=== PATIENT | female | born 1995 | race Caucasian/White ===

== ENCOUNTER 2017-04-02 21:45 | Inpatient (IN) | payer BC ==
[2017-04-02] MEDS ORDERED: Metoclopramide 10 MG/2 ML SDV IVPUSH ONE (22:06)
[2017-04-02] MEDS ORDERED: HYDROmorphone 0.5 MG/0.5 ML Syringe IVPUSH ONE (22:09)
[2017-04-02] MEDS ORDERED: Insulin Regular, Human 100 Units/ML 3 ML Vial IVPUSH ONE (22:11)
--- NOTE | 2017-04-02 22:11 | EDM.PDOC ---
ED HPI GENERAL MEDICAL PROBLEM - General Chief Complaint: Diabetic Complaint Stated Complaint: DIABETIC CHECK Time Seen by Provider: 04/02/17 22:05 Source of Information: Reports: Patient History Limitations: Reports: No Limitations - History of Present Illness INITIAL COMMENTS - FREE TEXT/NARRATIVE: 21-year-old female who is an insulin-dependent diabetic controlled with an insulin pump presents to the ED with nausea and vomiting starting today. Denies any diarrhea. Denies any fever or chills. Does seem to have a nonproductive cough. She is complaining of diffuse upper abdominal discomfort rating through to her back. Can't keep any food down. She reports she has given herself several boluses of insulin with her insulin pump but she doesn't know how much insulin is in each bolus. She has no idea what her total insulin uses per day. I had her therefore stop her insulin pump at this time. She apparently has been diabetic 4 years. He states she has had DKA once in the past about 1 years ago. She does not believe she is . Denies any genitourinary complaints. Therefore precipitant of acute DKA is unclear. Onset: Today Onset Date: 04/02/17 Onset Time: 09:00 Duration: Hour(s): Location: Reports: Generalized Quality: Reports: Other (Weakness nausea abdominal pain radiating through to her flanks characteristic of metabolic acidosis.) Severity: Severe Improves with: Reports: None Worsens with: Reports: None Context: Reports: Other (Insulin-dependent diabetic she believes her insulin pump is working satisfactorily.). Denies: Activity, Exercise, Lifting, Sick Contact, Trauma Associated Symptoms: Reports: Loss of Appetite, Nausea/Vomiting, Weakness. Denies: Fever/Chills (Mostly dry heaves recently.), Headaches Treatments MAC DEVELOPER: Reports: Other (see below) (None.) Abdominal Pain Score (Numeric/FACES): 7 - Related Data Allergies Allergy/AdvReac Type Severity Reaction Status Date / Time Penicillins Allergy Other Verified 04/02/17 22:18 Home Meds: Home Meds Albuterol [IJD: Ventolin HFA] 2 puff INH Q4H PRN 04/02/17 [History] Insulin Aspart [NovoLOG] 1 dose SUBCUT ASDIRECTED 04/02/17 [History] Past Medical History Endocrine/Metabolic History: Reports: Diabetes, Type I (Has been diabetic for greater than 7 years. Currently is controlled with an insulin pump.) ED ROS GENERAL - Review of Systems Review Of Systems: See Below Constitutional: Reports: Malaise, Weakness, Fatigue, Decreased Appetite. Denies : Fever, Chills HEENT: Reports: No Symptoms Respiratory: Reports: Shortness of Breath, Cough (Nonproductive). Denies: Wheezing, Pleuritic Chest Pain, Sputum, Hemoptysis, Other Cardiovascular: Reports: Lightheadedness, Palpitations Endocrine: Reports: Fatigue, High Glucose GI/Abdominal: Reports: Abdominal Pain (Name 22 both flanks.), Nausea, Vomiting ( Intractable for the last 6 hours bilious without any hematemesis.). Denies: Diarrhea : Reports: No Symptoms Musculoskeletal: Reports: Back Pain Skin: Reports: Pallor, Other Neurological: Reports: Dizziness, Numbness, Tingling (Hands and feet), Difficulty Walking, Weakness, Gait Disturbance (Two-week to walk on her own volition had to come to the ED by wheelchair.). Denies: Headache, Change in Speech (Generalized) Psychiatric: Reports: No Symptoms Hematologic/Lymphatic: Reports: No Symptoms Immunologic: Reports: No Symptoms ED EXAM GENERAL NO PERIP PULSE - Physical Exam Exam: See Below Exam Limited By: No Limitations General Appearance: Alert, Moderate Distress (Moderate respiratory distress. Strong smell of ketones on her breath.) Eye Exam: Bilateral Eye: Normal Inspection Ears: Normal TMs Throat/Mouth: Other Head: Atraumatic (Tongue is severely dry and coated.), Normocephalic Neck: Normal Inspection, Supple, Non-Tender, Full Range of Motion. No: Lymphadenopathy (L), Lymphadenopathy (R) Respiratory/Chest: Lungs Clear, No Accessory Muscle Use, Chest Non-Tender, Respiratory Distress Cardiovascular: Normal Peripheral Pulses, Regular Rate, Rhythm, No Edema, No Gallop, No Murmur, No Rub, Tachycardia (Resting tachycardia of 112-14/m) GI/Abdominal: Normal Bowel Sounds, Soft, Non-Tender, No Organomegaly, No Abnormal Bruit, No Mass, Pelvis Stable Back Exam: Normal Inspection, Full Range of Motion, CVA Tenderness (L), CVA Tenderness (R) (MILD mild) Extremities: Normal Inspection, Normal Range of Motion, Non-Tender, No Pedal Edema, Normal Capillary Refill Neurological: Alert, Oriented, CN II-XII Intact, Normal Cognition, Sensory/ Motor Deficit. No: Normal Gait Psychiatric: Normal Affect (Paresthesias in all of her limbs from hyperventilation.), Anxious Skin Exam: Warm, Dry, Intact, Normal Color, No Rash, Other (Afebrile.) EKG INTERPRETATION EKG Date: 04/02/17 Time: 22:40 Rhythm: Other (Sinus tachycardia at 10 4/m) Rate (Beats/Min): 104 [place]: Normal P-Wave: Present QRS: (repolarization pattern) ST-T: Normal (Diffuse early) QT: Normal Course - Vital Signs Last Recorded V/S: Last Vital Signs Temp 36.3 C 04/02/17 22:11 Pulse 110 H 04/02/17 22:11 Resp 37 H 04/02/17 23:35 BP 159/90 H 04/02/17 23:35 Pulse Ox 100 04/02/17 23:35 - Orders/Labs/Meds Orders: Active Orders 24 hr Category Date Time Status Admission Status [Patient Status] [ADT] Routine ADT 04/02/17 23:33 Active Blood Glucose Check, Bedside [RC] ONETIME Care 04/02/17 23:30 Active Blood Glucose Check, Bedside [RC] Q1HR Care 04/02/17 22:09 Active Oxygen Therapy [RC] ASDIRECTED Care 04/02/17 22:36 Active Chest 1V Frontal [CR] Stat Exams 04/02/17 23:08 Taken Insulin Regular, Human [HumuLIN R] 100 unit Med 04/02/17 22:15 Active Sodium Chloride 0.9% [Normal Saline] 99 ml IV ASDIRECTED Sodium Chloride 0.9% [Normal Saline] 1,000 ml Med 04/02/17 22:15 Active IV ASDIRECTED Medication Orders Sodium Chloride (Normal Saline) 1,000 mls @ 999 mls/hr IV ASDIRECTED ESA Last Admin: 04/02/17 22:34 Dose: 999 mls/hr Insulin Human Regular 100 unit (/ Sodium Chloride) 100 mls @ 2 mls/hr IV ASDIRECTED ESA PRN Reason: 2 UNIT/HR Last Infusion: 04/03/17 04:31 Dose: 2 unit/hr, 2 mls/hr Infusion: 04/03/17 03:22 Dose: 3 unit/hr, 3 mls/hr Infusion: 04/03/17 02:20 Dose: 2 unit/hr, 2 mls/hr Admin: 04/02/17 22:50 Dose: 3 unit/hr, 3 mls/hr Sodium Chloride (Normal Saline) 1,000 mls @ 500 mls/hr IV ONETIME ONE Stop: 04/03/17 06:10 Last Admin: 04/03/17 04:13 Dose: 500 mls/hr Dextrose/Sodium Chloride (Dextrose 5%-Normal Saline) 1,000 mls @ 150 mls/hr IV ASDIRECTED [facility] Labs: Laboratory Tests 04/02/17 04/02/17 04/02/17 Range/Units 22:00 22:00 22:00 WBC 36.39 H (3.98-10.04) K/mm3 RBC 4.38 (3.98-5.22) M/mm3 Hgb 13.2 (11.2-15.7) gm/L Hct 40.4 (34.1-44.9) % MCV 92.2 (79.4-94.8) fl MCH 30.1 (25.6-32.2) pg MCHC 32.7 (32.2-35.5) g/dl RDW Std Deviation 40.0 (36.4-46.3) fL Plt Count 674 H (182-369) K/mm3 MPV 9.1 L (9.4-12.3) fl Neutrophils % (Manual) 77 H (40-60) % Band Neutrophils % 3 (0-10) % Lymphocytes % (Manual) 15 L (20-40) % Atypical Lymphs % 0 % Monocytes % (Manual) 5 (2-10) % Eosinophils % (Manual) 0 L (0.7-5.8) % Basophils % (Manual) 0 L (0.1-1.2) Platelet Estimate Increased RBC Morph Comment Normal Puncture Site ABG pH (7.35-7.45) ABG pCO2 (35.0-45.0) mmHg ABG pO2 (80.0-100.0) mmHg ABG HCO3 (22.0-26.0) meq/L ABG O2 Saturation (96.0-97.0) % ABG Base Excess (-2-2.0) A-a Gradient mmHg O2 Delivery Device Oxygen Flow Rate FiO2 (21.00-100.00) % Sodium 131 L (136-145) mEq/L Potassium 5.3 H (3.5-5.1) mEq/L Chloride 92 L (98-107) mEq/L Carbon Dioxide < 5 L* (21-32) mEq/L Anion Gap 39.3 H (5-15) BUN 22 H (7-18) mg/dL Creatinine 1.6 H (0.55-1.02) mg/dL Est Cr Clr Drug Dosing 46.01 mL/min Estimated GFR (MDRD) 41 (>60) mL/min BUN/Creatinine Ratio 13.8 L (14-18) Glucose 840 H* (74-106) mg/dL Serum Osmolality 342 H (280-300) mosm/kg Calcium 9.5 (8.5-10.1) mg/dL Magnesium 2.4 (1.8-2.4) mg/dl Total Bilirubin 0.6 (0.2-1.0) mg/dL AST 23 (15-37) U/L ALT 25 (14-59) U/L Alkaline Phosphatase 204 H (46-116) U/L C-Reactive Protein < 0.2 (<1.0) mg/dL Total Protein 7.0 (6.4-8.2) g/dl Albumin 2.5 L (3.4-5.0) g/dl Globulin 4.5 gm/dL Albumin/Globulin Ratio 0.6 L (1-2) HCG, Qual (NEGATIVE) Urine Color (Yellow) Urine Appearance (Clear) Urine pH (5.0-8.0) Ur Specific [place] (1.005-1.030) Urine Protein (Negative) Urine Glucose (UA) (Negative) Urine Ketones (Negative) Urine Occult Blood (Negative) Urine Nitrite (Negative) Urine Bilirubin (Negative) Urine Urobilinogen (0.2-1.0) Ur Leukocyte Esterase (Negative) Urine RBC (0-5) /hpf Urine WBC (0-5) /hpf Ur Epithelial Cells (0-5) /hpf Amorphous Sediment (NOT SEEN) /hpf Urine Bacteria (FEW) /hpf Urine Mucus (FEW) /hpf Ketones 15.21 (0.0-0.3) mM 04/02/17 04/02/17 04/03/17 Range/Units 22:00 22:07 00:02 WBC (3.98-10.04) K/mm3 RBC (3.98-5.22) M/mm3 Hgb (11.2-15.7) gm/L Hct (34.1-44.9) % MCV (79.4-94.8) fl MCH (25.6-32.2) pg MCHC (32.2-35.5) g/dl RDW Std Deviation (36.4-46.3) fL Plt Count (182-369) K/mm3 MPV (9.4-12.3) fl Neutrophils % (Manual) (40-60) % Band Neutrophils % (0-10) % Lymphocytes % (Manual) (20-40) % Atypical Lymphs % % Monocytes % (Manual) (2-10) % Eosinophils % (Manual) (0.7-5.8) % Basophils % (Manual) (0.1-1.2) Platelet Estimate RBC Morph Comment Puncture Site Rt radial ABG pH 6.88 L* (7.35-7.45) ABG pCO2 18.2 L* (35.0-45.0) mmHg ABG pO2 80.0 (80.0-100.0) mmHg ABG HCO3 3.2 L (22.0-26.0) meq/L ABG O2 Saturation 88.5 L (96.0-97.0) % ABG Base Excess -30.3 L (-2-2.0) A-a Gradient 32 mmHg O2 Delivery Device Room air Oxygen Flow Rate 0.0 FiO2 0.00 L (21.00-100.00) % Sodium (136-145) mEq/L Potassium (3.5-5.1) mEq/L Chloride (98-107) mEq/L Carbon Dioxide (21-32) mEq/L Anion Gap (5-15) BUN (7-18) mg/dL Creatinine (0.55-1.02) mg/dL Est Cr Clr Drug Dosing mL/min Estimated GFR (MDRD) (>60) mL/min BUN/Creatinine Ratio (14-18) Glucose 615 H* (74-106) mg/dL Serum Osmolality (280-300) mosm/kg Calcium (8.5-10.1) mg/dL Magnesium (1.8-2.4) mg/dl Total Bilirubin (0.2-1.0) mg/dL AST (15-37) U/L ALT (14-59) U/L Alkaline Phosphatase (46-116) U/L C-Reactive Protein (<1.0) mg/dL Total Protein (6.4-8.2) g/dl Albumin (3.4-5.0) g/dl Globulin gm/dL Albumin/Globulin Ratio (1-2) HCG, Qual Negative (NEGATIVE) Urine Color (Yellow) Urine Appearance (Clear) Urine pH (5.0-8.0) Ur Specific [place] (1.005-1.030) Urine Protein (Negative) Urine Glucose (UA) (Negative) Urine Ketones (Negative) Urine Occult Blood (Negative) Urine Nitrite (Negative) Urine Bilirubin (Negative) Urine Urobilinogen (0.2-1.0) Ur Leukocyte Esterase (Negative) Urine RBC (0-5) /hpf Urine WBC (0-5) /hpf Ur Epithelial Cells (0-5) /hpf Amorphous Sediment (NOT SEEN) /hpf Urine Bacteria (FEW) /hpf Urine Mucus (FEW) /hpf Ketones (0.0-0.3) mM 04/03/17 04/03/17 04/03/17 Range/Units 00:15 00:45 01:44 WBC (3.98-10.04) K/mm3 RBC (3.98-5.22) M/mm3 Hgb (11.2-15.7) gm/L Hct (34.1-44.9) % MCV (79.4-94.8) fl MCH (25.6-32.2) pg MCHC (32.2-35.5) g/dl RDW Std Deviation (36.4-46.3) fL Plt Count (182-369) K/mm3 MPV (9.4-12.3) fl Neutrophils % (Manual) (40-60) % Band Neutrophils % (0-10) % Lymphocytes % (Manual) (20-40) % Atypical Lymphs % % Monocytes % (Manual) (2-10) % Eosinophils % (Manual) (0.7-5.8) % Basophils % (Manual) (0.1-1.2) Platelet Estimate RBC Morph Comment Puncture Site ABG pH (7.35-7.45) ABG pCO2 (35.0-45.0) mmHg ABG pO2 (80.0-100.0) mmHg ABG HCO3 (22.0-26.0) meq/L ABG O2 Saturation (96.0-97.0) % ABG Base Excess (-2-2.0) A-a Gradient mmHg O2 Delivery Device Oxygen Flow Rate FiO2 (21.00-100.00) % Sodium (136-145) mEq/L Potassium (3.5-5.1) mEq/L Chloride (98-107) mEq/L Carbon Dioxide (21-32) mEq/L Anion Gap (5-15) BUN (7-18) mg/dL Creatinine (0.55-1.02) mg/dL Est Cr Clr Drug Dosing mL/min Estimated GFR (MDRD) (>60) mL/min BUN/Creatinine Ratio (14-18) Glucose 545 H* 460 H (74-106) mg/dL Serum Osmolality (280-300) mosm/kg Calcium (8.5-10.1) mg/dL Magnesium (1.8-2.4) mg/dl Total Bilirubin (0.2-1.0) mg/dL AST (15-37) U/L ALT (14-59) U/L Alkaline Phosphatase (46-116) U/L C-Reactive Protein (<1.0) mg/dL Total Protein (6.4-8.2) g/dl Albumin (3.4-5.0) g/dl Globulin gm/dL Albumin/Globulin Ratio (1-2) HCG, Qual (NEGATIVE) Urine Color Yellow (Yellow) Urine Appearance Clear (Clear) Urine pH 5.5 (5.0-8.0) Ur Specific [place] 1.025 (1.005-1.030) Urine Protein 3+ H (Negative) Urine Glucose (UA) 2+ H (Negative) Urine Ketones 3+ H (Negative) Urine Occult Blood 2+ H (Negative) Urine Nitrite Negative (Negative) Urine Bilirubin Negative (Negative) Urine Urobilinogen 0.2 (0.2-1.0) Ur Leukocyte Esterase Negative (Negative) Urine RBC 10-20 H (0-5) /hpf Urine WBC 0-5 (0-5) /hpf Ur Epithelial Cells 0-5 (0-5) /hpf Amorphous Sediment Few H (NOT SEEN) /hpf Urine Bacteria Few (FEW) /hpf Urine Mucus Few (FEW) /hpf Ketones (0.0-0.3) mM /04/11 Range/Units 02:45 WBC (3.98-10.04) K/mm3 RBC (3.98-5.22) M/mm3 Hgb (11.2-15.7) gm/L Hct (34.1-44.9) % MCV (79.4-94.8) fl MCH (25.6-32.2) pg MCHC (32.2-35.5) g/dl RDW Std Deviation (36.4-46.3) fL Plt Count (182-369) K/mm3 MPV (9.4-12.3) fl Neutrophils % (Manual) (40-60) % Band Neutrophils % (0-10) % Lymphocytes % (Manual) (20-40) % Atypical Lymphs % % Monocytes % (Manual) (2-10) % Eosinophils % (Manual) (0.7-5.8) % Basophils % (Manual) (0.1-1.2) Platelet Estimate RBC Morph Comment Puncture Site ABG pH (7.35-7.45) ABG pCO2 (35.0-45.0) mmHg ABG pO2 (80.0-100.0) mmHg ABG HCO3 (22.0-26.0) meq/L ABG O2 Saturation (96.0-97.0) % ABG Base Excess (-2-2.0) A-a Gradient mmHg O2 Delivery Device Oxygen Flow Rate FiO2 (21.00-100.00) % Sodium 139 (136-145) mEq/L Potassium 5.1 (3.5-5.1) mEq/L Chloride 106 (98-107) mEq/L Carbon Dioxide < 5 L* (21-32) mEq/L Anion Gap 33.1 H (5-15) BUN 19 H (7-18) mg/dL Creatinine 1.3 H (0.55-1.02) mg/dL Est Cr Clr Drug Dosing 56.63 mL/min Estimated GFR (MDRD) 52 (>60) mL/min BUN/Creatinine Ratio 14.6 (14-18) Glucose 416 H (74-106) mg/dL Serum Osmolality (280-300) mosm/kg Calcium 7.4 L (8.5-10.1) mg/dL Magnesium (1.8-2.4) mg/dl Total Bilirubin 0.4 (0.2-1.0) mg/dL AST 14 L (15-37) U/L ALT 21 (14-59) U/L Alkaline Phosphatase 150 H (46-116) U/L C-Reactive Protein (<1.0) mg/dL Total Protein 5.4 L (6.4-8.2) g/dl Albumin 1.9 L (3.4-5.0) g/dl Globulin 3.5 gm/dL Albumin/Globulin Ratio 0.5 L (1-2) HCG, Qual (NEGATIVE) Urine Color (Yellow) Urine Appearance (Clear) Urine pH (5.0-8.0) Ur Specific [place] (1.005-1.030) Urine Protein (Negative) Urine Glucose (UA) (Negative) Urine Ketones (Negative) Urine Occult Blood (Negative) Urine Nitrite (Negative) Urine Bilirubin (Negative) Urine Urobilinogen (0.2-1.0) Ur Leukocyte Esterase (Negative) Urine RBC (0-5) /hpf Urine WBC (0-5) /hpf Ur Epithelial Cells (0-5) /hpf Amorphous Sediment (NOT SEEN) /hpf Urine Bacteria (FEW) /hpf Urine Mucus (FEW) /hpf Ketones (0.0-0.3) mM Meds: Medications Generic Name Dose Route Start Last Admin Trade Name Freq PRN Reason Stop Dose Admin Sodium Chloride 1,000 mls @ 999 mls/hr 04/02/17 22:15 04/02/17 22:34 Normal Saline IV 999 mls/hr ASDIRECTED ESA Administration Insulin Human Regular 100 unit 100 mls @ 2 mls/hr 04/02/17 22:15 04/03/17 04: 31 / Sodium Chloride IV 2 unit/hr ASDIRECTED ESA 2 mls/hr 2 UNIT/HR Infusion Sodium Chloride 1,000 mls @ 500 mls/hr 04/03/17 04:11 04/03/17 04:13 Normal Saline IV 04/03/17 06:10 500 mls/hr ONETIME ONE Administration Dextrose/Sodium Chloride 1,000 mls @ 150 mls/hr 04/03/17 05:15 Dextrose 5%-Normal Saline IV ASDIRECTED ESA Discontinued Medications Generic Name Dose Route Start Last Admin Trade Name Freq PRN Reason Stop Dose Admin Hydromorphone HCl 0.5 mg 04/02/17 22:09 04/02/17 22:34 Dilaudid IVPUSH 04/02/17 22:10 0.5 mg ONETIME ONE Administration Hydromorphone HCl 0.5 mg 04/03/17 01:11 04/03/17 01:22 Dilaudid IVPUSH 04/03/17 01:12 0.5 mg ONETIME ONE Administration Lidocaine HCl Confirm 04/02/17 22:16 Xylocaine-Mpf 1% Administered 04/02/17 22:17 Dose 2 mls @ as directed .ROUTE .STK-MED ONE Sodium Chloride 1,000 mls @ 999 mls/hr 04/02/17 23:45 04/02/17 23:47 Normal Saline IV 04/03/17 00:45 999 mls/hr ONETIME ONE Administration Sodium Chloride 1,000 mls @ 999 mls/hr 04/03/17 01:00 04/03/17 01:00 Normal Saline IV 04/03/17 02:00 999 mls/hr ONETIME ONE Administration Sodium Chloride 1,000 mls @ 999 mls/hr 04/03/17 01:12 04/03/17 04:17 Normal Saline IV 04/03/17 02:12 Not Given ONETIME ONE Sodium Chloride 1,000 mls @ 500 mls/hr 04/03/17 02:15 04/03/17 02:10 Normal Saline IV 04/03/17 04:14 500 mls/hr ONETIME ONE Administration Sodium Chloride 1,000 mls @ 500 mls/hr 04/03/17 02:22 04/03/17 04:17 Normal Saline IV 04/03/17 04:21 Not Given ONETIME ONE Insulin Human Regular 10 unit 04/02/17 22:11 04/02/17 22:31 Humulin R IVPUSH 04/02/17 22:12 10 unit ONETIME ONE Administration Protocol Lorazepam 0.5 mg 04/02/17 22:35 04/02/17 22:47 Ativan IVPUSH 04/02/17 22:36 0.5 mg ONETIME ONE Administration Metoclopramide HCl 7.5 mg 04/02/17 22:06 04/02/17 22:33 Reglan IVPUSH 04/02/17 22:07 7.5 mg ONETIME ONE Administration - Radiology Interpretation Free Text/Narrative:: 21-year-old female who is insulin-dependent diabetic controlled with an insulin pump presents to the ED in acute diabetic ketoacidosis. Bedside blood sugars greater than 400. She reports symptoms started early this morning with nausea around 9:00 and then she started vomiting shortly thereafter. Nothing his stay down today. She states she has given herself several boluses of insulin as her monitor continues to read high but she is unaware of how much insulin her boluses are. She is unaware of how much insulin she takes in total per day. Plan IV normal saline at open. 10 units of insulin IV bolus then drip to be started at 3 units an hour. Routine labs obtained she does not feel febrile and therefore blood cultures were not ordered. Will make sure she is not before ordering chest x-ray. 8 a ABGs are to be done. - Re-Assessments/Exams Free Text/Narrative Re-Assessment/Exam: 04/02/17 22:33 ABGs revealed a pH of 6.88. PCO2 of 18.2 PO2 of 80 on room air. O2 sats are 88.5% on room air. Base deficit is -30.3. 04/02/17 22:36 a she continues to pull off her blood pressure cuff and her monitor pads. This makes it impossible to monitor her vital signs at present. We 'll give her Ativan 0.5 mg IV. She just received Dilaudid 0.5 mg IV a short time ago to release some of her upper abdominal discomfort from the metabolic acidosis. Oxygen will be started by nasal prongs at 2 L/m as long as she can keep the prongs in place. 04/02/17 23:16 after mild sedation patient has settled. Her pain she test is come back negative and therefore she will have a portable chest x-ray performed to rule out any underlying infection in the lungs. Labs are back and reveal an elevated white count at 36.39. Differential is pending. Hemoglobin is 13.2 with hematocrit of 40.4 platelets are elevated at 674,000 [place]iss[place] suggesting some degree of hemoconcentration. Sodium is low at 131 potassium is high normal at 5.3. Chloride 92 bicarbonate is less than 5. Anion gap is markedly elevated at 39.3 be when his 22 creatinine is 1.6 EGFR is only 41. Glucose is 840 in the lab. Serum osmolality 342. Alk phosphatase is mildly elevated at 204 .HCG was negative. Albumin fraction is low at 2.5. Serum ketones as well as the differential on the white count are pending. 04/02/17 23:23 port chest x-ray is within normal limits showing no signs of infection. Serum ketones are markedly elevated at 15.21. Different differential of the white cell count was 77% neutrophils and 3% band cells. Urinalysis is not yet been obtained for analysis. I will discuss case with contact center representative hospitalist Dr. Hills with a view to admission to the intensive care unit. 04/02/17 23:32 Dr. Hills in the department and will see the patient at this time. Orders will be placed for admission to the intensive care unit. 04/03/17 00:48 blood sugar at midnight was reported to be 615. She is currently on her second liter of normal saline IV. Will leave the insulin drip at 3 units an hour. She is scheduled for hourly blood sugars. She is able to drink Gatorade and water at this time. 04/03/17 01:13 patient is currently moaning and groaning due to her abdominal pain. It's is most likely still secondary to the significant metabolic acidosis. We will repeat Dilaudid 0.5 mg IV. Orders written for third liter of normal saline to be infused at 999 mils per hour. Will see what her next blood sugar is and make adjustments to insulin drip if required. Is my understanding that a bed will not be available for her in the intensive care unit until around 0300 hrs. 04/03/17 01:28 blood sugars down to 545. At this time no changes in treatment plan are required. She will continue 3 units of insulin per hour and IV will be normal saline at open. The next liter of IV fluid will be normal saline at 500 mils per hour. 04/03/17 02:23 blood sugar reported to be down to 450. Fourth liter of IV fluids will be 500 mils per hour of normal saline. Turned her insulin drip down to 2 units per hour. 04/03/17 03:23 blood sugars currently down to 416. Her anion gap remains elevated however at 33.3. She remains very acidotic. Serum potassium is 5.1. Will increase insulin drip back to 3 units per hour. IV fluids will continue normal saline 500 mils per hour. It still? As to when she will be admitted to the intensive care unit. 04/03/17 04:48 last blood sugar was down to 285. Insulin drip was therefore decreased to 2 units per hour. Is continuing normal saline at 500 mils per hour. Blood sugar to be checked again in one hours time. It is likely at that time that insulin infusion will be decreased to 1 unit per hour. IV will be changed to contain D5 normal saline. Apparently there is still no bed available in the intensive care unit. 04/03/17 05:17 bed is available in the intensive care unit and she will be taken to the unit shortly. Departure - Departure Time of Disposition: 05:17 Disposition: Admitted As Inpatient 66 Condition: Critical Clinical Impression: Diabetic ketoacidosis associated with type 1 diabetes mellitus Qualifiers: Diabetes mellitus complication detail: without coma Qualified Code(s): E10.10 - Type 1 diabetes mellitus with ketoacidosis without coma - Discharge Information - My Orders Last 24 Hours: My Active Orders 04/02/17 22:09 Blood Glucose Check, Bedside [RC] Q1HR 04/02/17 22:15 Insulin Regular, Human [HumuLIN R] 100 unit Sodium Chloride 0.9% [Normal Saline] 99 ml IV ASDIRECTED Sodium Chloride 0.9% [Normal Saline] 1,000 ml IV ASDIRECTED 04/02/17 22:36 Oxygen Therapy [RC] ASDIRECTED 04/02/17 23:08 Chest 1V Frontal [CR] Stat 04/02/17 23:30 Blood Glucose Check, Bedside [RC] ONETIME 04/02/17 23:33 Admission Status [Patient Status] [ADT] Routine - Assessment/Plan Last 24 Hours: My Active Orders 04/02/17 22:09 Blood Glucose Check, Bedside [RC] Q1HR 04/02/17 22:15 Insulin Regular, Human [HumuLIN R] 100 unit Sodium Chloride 0.9% [Normal Saline] 99 ml IV ASDIRECTED Sodium Chloride 0.9% [Normal Saline] 1,000 ml IV ASDIRECTED 04/02/17 22:36 Oxygen Therapy [RC] ASDIRECTED 04/02/17 23:08 Chest 1V Frontal [CR] Stat 04/02/17 23:30 Blood Glucose Check, Bedside [RC] ONETIME 04/02/17 23:33 Admission Status [Patient Status] [ADT] Routine
[2017-04-02] MEDS ORDERED: Sodium Chloride 0.9% 1,000 ML IV SCH (22:15)
[2017-04-02] MEDS ORDERED: Lidocaine 1% 2 ML ONE (22:16)
[2017-04-02] MEDS ORDERED: LORazepam 2 MG/ML MDV IVPUSH ONE (22:35)
[2017-04-02] MEDS ORDERED: Sodium Chloride 0.9% 1,000 ML IV ONE (23:45)
[2017-04-03] MEDS ORDERED: Sodium Chloride 0.9% 1,000 ML IV ONE ×5 (01:00→04:11)
[2017-04-03] MEDS ORDERED: HYDROmorphone 0.5 MG/0.5 ML Syringe IVPUSH ONE (01:11)
[2017-04-03] MEDS: Dextrose 5%-0.9% NaCl 1,000 ML IV SCH ×3 (05:47→20:56)
--- NOTE | 2017-04-03 09:23 | PCM.HP ---
H&P History of Present Illness - General Date of Service: 04/02/17 Source of Information: Provider History Limitations: Reports: Other (restlessness; medicated after screaming in the ED) - History of Present Illness Initial Comments - Free Text/Narative: 21 year old PMH of Diabetes Mellitus type 1, presents with nausea/vomiting with associated abdominal pain. She has been anxious while in the ED often screaming at the staff. Prior to evaluation by the hospitalist service, she was sedated. The history is as obtained by the ED provider. She is receiving a liter of fluid and will be started on insulin. The insulin pump has been disabled, frequently, the patient gave herself boluses without knowledge of how much she was giving herself. Reportedly she has been a diabetic for four years. Laboratory results document DKA. She will admitted to the ICU per DKA protocol. Onset of Symptoms: Reports: Sudden Symptom Onset Date: 04/02/17 Duration of Symptoms: Reports: Hour(s):, Getting Worse Location: Reports: Abdomen, Generalized Severity: Moderate Improves with: Reports: Medication Worsens with: Reports: None Associated Symptoms: Reports: Loss of Appetite, Malaise, Nausea/Vomiting, Weakness Abdominal Pain Score (Numeric/FACES): 7 - Related Data Allergies/Adverse Reactions: Allergies Allergy/AdvReac Type Severity Reaction Status Date / Time Penicillins Allergy Other Verified 04/02/17 22:18 Home Medications: Home Meds Albuterol [IJD: Ventolin HFA] 2 puff INH Q4H PRN 04/02/17 [History] Insulin Aspart [NovoLOG] 1 dose SUBCUT ASDIRECTED 04/02/17 [History] Past Medical History Endocrine/Metabolic History: Reports: Diabetes, Type I (Has been diabetic for greater than 7 years. Currently is controlled with an insulin pump.) Social & Family History - Family History Family Medical History: Noncontributory - Tobacco Use Smoking Status *Q: Never Smoker - Caffeine Use Caffeine Use: Reports: Coffee, Soda - Recreational Drug Use Recreational Drug Use: No H&P Review of Systems - Review of Systems: Review Of Systems: See Below General: Reports: Malaise, Weakness, Fatigue, Decreased Appetite HEENT: Reports: No Symptoms Pulmonary: Reports: Shortness of Breath, Cough Cardiovascular: Reports: No Symptoms Gastrointestinal: Reports: Abdominal Pain Genitourinary: Reports: No Symptoms Musculoskeletal: Reports: No Symptoms Skin: Reports: No Symptoms Psychiatric: Reports: No Symptoms Neurological: Reports: No Symptoms Hematologic/Lymphatic: Reports: No Symptoms Immunologic: Reports: No Symptoms Exam - Exam Exam: See Below - Vital Signs Vital Signs: Last Vital Signs Temp 37.2 C 04/03/17 08:00 Pulse 110 H 04/02/17 22:11 Resp 15 04/03/17 08:00 BP 126/78 04/03/17 08:00 Pulse Ox 100 04/03/17 08:00 Weight: 54.431 kg - Exam Quality Assessment: Supplemental Oxygen General: Sedated HEENT: Pupils Equal, Pupils Reactive, PERRLA Neck: Supple, Trachea Midline Lungs: Normal Respiratory Effort Cardiovascular: Regular Rate, Tachycardia GI/Abdominal Exam: Normal Bowel Sounds, Soft, Non-Tender, No Distention (Female) Exam: Deferred Rectal (Female) Exam: Deferred Back Exam: Normal Inspection Extremities: Normal Inspection Skin: Warm Neurological: Cranial Nerves Intact Neuro Extensive - Motor, Sensory, Reflexes: CN II-XII Intact Psychiatric: Anxious (before sedation) - Patient Data Lab Results Last 24 hrs: Laboratory Results - last 24 hr 04/03/17 04/03/17 04/03/17 Range/Units 04:26 05:35 06:18 Sodium 142 (136-145) mEq/L Potassium 4.1 (3.5-5.1) mEq/L Chloride 112 H (98-107) mEq/L Carbon Dioxide 11 L (21-32) mEq/L Anion Gap 23.1 H (5-15) BUN 16 (7-18) mg/dL Creatinine 1.2 H (0.55-1.02) mg/dL Est Cr Clr Drug Dosing 61.35 mL/min Estimated GFR (MDRD) 57 (>60) mL/min BUN/Creatinine Ratio 13.3 L (14-18) Glucose 205 H (74-106) mg/dL POC Glucose 285 H 218 H (70-105) mg/dL Calcium 7.2 L (8.5-10.1) mg/dL Magnesium 1.8 (1.8-2.4) mg/dl 04/03/17 04/03/17 04/03/17 Range/Units 06:23 07:57 08:48 Sodium (136-145) mEq/L Potassium (3.5-5.1) mEq/L Chloride (98-107) mEq/L Carbon Dioxide (21-32) mEq/L Anion Gap (5-15) BUN (7-18) mg/dL Creatinine (0.55-1.02) mg/dL Est Cr Clr Drug Dosing mL/min Estimated GFR (MDRD) (>60) mL/min BUN/Creatinine Ratio (14-18) Glucose (74-106) mg/dL POC Glucose 189 H 166 H 147 H (70-105) mg/dL Calcium (8.5-10.1) mg/dL Magnesium (1.8-2.4) mg/dl Result Diagrams: 04/03/17 12:52 04/03/17 09:50 *Q Meaningful Use (ADM) - VTE *Q VTE Criteria *Q: - Stroke *Q Stroke Criteria *Q: - AMI *Q AMI Criteria *Q: Problem List Initiated/Reviewed/Updated: Yes Orders Last 24hrs: Active Orders 24 hr Category Date Time Status Consult to Liquor Establishment Manager [Consult to Diabetic Nurse Cons 04/03/17 05:08 Active Specialist] [CONS] Routine NPO [Nothing Per Oral Diet] [DIET] Diet 04/03/17 Breakfast Active BMP [BASIC METABOLIC PANEL,BMP] [CHEM] Routine Lab 04/03/17 10:00 Ordered Dextrose 5%-0.9% NaCl [Dextrose 5%-Normal Saline] 1,000 Med 04/03/17 05:15 Active ml IV ASDIRECTED Insulin Regular, Human [HumuLIN R] 100 unit Med 04/03/17 06:00 Active Sodium Chloride 0.9% [Normal Saline] 99 ml IV ASDIRECTED Code Status [Resuscitation Status] Routine Resus Stat 04/03/17 05:55 Ordered Medication Orders Dextrose/Sodium Chloride (Dextrose 5%-Normal Saline) 1,000 mls @ 150 mls/hr IV ASDIRECTED ESA Last Admin: 04/03/17 05:47 Dose: 150 mls/hr Insulin Human Regular 100 unit (/ Sodium Chloride) 100 mls @ 2 mls/hr IV ASDIRECTED ESA; 2 UNIT/HR PRN Reason: Protocol Last Titration: 04/03/17 08:49 Dose: 1 unit/hr, 1 mls/hr Titration: 04/03/17 07:59 Dose: 1.5 unit/hr, 1.5 mls/hr Titration: 04/03/17 06:34 Dose: 2 unit/hr, 2 mls/hr Admin: 04/03/17 05:56 Dose: 2.5 unit/hr, 2.5 mls/hr Assessment/Plan Comment:: Impression: DKA, unknown precipitant Type 1 Diabetes Mellitus Plan: ICU DKA protocol IVF Electrolyte Replacement NPO Clarify insulin pump dose DM education CM/OT/PT DVT/GI prophylaxis
[2017-04-03] MEDS ORDERED: Ondansetron 4 MG/2 ML SDV IVPUSH PRN (09:57)
[2017-04-03] MEDS ORDERED: Metoclopramide 10 MG/2 ML SDV IVPUSH PRN (09:58)
[2017-04-03] MEDS: Sodium Chloride 0.9% 1,000 ML IV SCH ×2 (10:01→11:03)
[2017-04-03] MEDS ORDERED: Magnesium Sulfate/Water 2 GM in Premix Bag 1 BAG IV ONE (13:55)
--- NOTE | 2017-04-03 15:10 | PCM.PN ---
- General Info Date of Service: 04/03/17 Functional Status: Reports: Other (NPO) - Review of Systems General: Reports: Weakness, Malaise HEENT: Reports: No Symptoms Pulmonary: Reports: No Symptoms Cardiovascular: Reports: No Symptoms Gastrointestinal: Reports: No Symptoms Genitourinary: Reports: No Symptoms Musculoskeletal: Reports: No Symptoms Skin: Reports: No Symptoms Neurological: Reports: No Symptoms Psychiatric: Reports: No Symptoms - Patient Data Vitals - Most Recent: Last Vital Signs Temp 36.7 C 04/03/17 11:49 Pulse 110 H 04/02/17 22:11 Resp 17 04/03/17 11:49 BP 132/87 04/03/17 11:49 Pulse Ox 100 04/03/17 11:49 Weight - Most Recent: 54.431 kg I&O - Last 24 Hours: Intake & Output 04/03/17 04/03/17 04/03/17 06:59 14:59 22:59 Intake Total 3406 Output Total 1800 Balance 1606 Lab Results Last 24 Hours: Laboratory Results - last 24 hr 04/03/17 04/03/17 04/03/17 Range/Units 04:26 05:35 06:18 WBC (3.98-10.04) K/mm3 RBC (3.98-5.22) M/mm3 Hgb (11.2-15.7) gm/L Hct (34.1-44.9) % MCV (79.4-94.8) fl MCH (25.6-32.2) pg MCHC (32.2-35.5) g/dl RDW Std Deviation (36.4-46.3) fL Plt Count (182-369) K/mm3 MPV (9.4-12.3) fl Neut % (Auto) (34.0-71.1) % Lymph % (Auto) (19.3-51.7) % George % (Auto) (4.7-12.5) % Eos % (Auto) (0.7-5.8) Baso % (Auto) (0.1-1.2) % Neut # (Auto) (1.56-6.13) K/mm3 Lymph # (Auto) (1.18-3.74) K/mm3 George # (Auto) (0.24-0.36) K/mm3 Eos # (Auto) (0.04-0.36) K/mm3 Baso # (Auto) (0.01-0.08) K/mm3 Manual Slide Review Sodium 142 (136-145) mEq/L Potassium 4.1 (3.5-5.1) mEq/L Chloride 112 H (98-107) mEq/L Carbon Dioxide 11 L (21-32) mEq/L Anion Gap 23.1 H (5-15) BUN 16 (7-18) mg/dL Creatinine 1.2 H (0.55-1.02) mg/dL Est Cr Clr Drug Dosing 61.35 mL/min Estimated GFR (MDRD) 57 (>60) mL/min BUN/Creatinine Ratio 13.3 L (14-18) Glucose 205 H (74-106) mg/dL POC Glucose 285 H 218 H (70-105) mg/dL Calcium 7.2 L (8.5-10.1) mg/dL Magnesium 1.8 (1.8-2.4) mg/dl C-Reactive Protein (<1.0) mg/dL Ethyl Alcohol (0.00) gm% Ketones (0.0-0.3) mM 04/03/17 04/03/17 04/03/17 Range/Units 06:23 07:57 08:48 WBC (3.98-10.04) K/mm3 RBC (3.98-5.22) M/mm3 Hgb (11.2-15.7) gm/L Hct (34.1-44.9) % MCV (79.4-94.8) fl MCH (25.6-32.2) pg MCHC (32.2-35.5) g/dl RDW Std Deviation (36.4-46.3) fL Plt Count (182-369) K/mm3 MPV (9.4-12.3) fl Neut % (Auto) (34.0-71.1) % Lymph % (Auto) (19.3-51.7) % George % (Auto) (4.7-12.5) % Eos % (Auto) (0.7-5.8) Baso % (Auto) (0.1-1.2) % Neut # (Auto) (1.56-6.13) K/mm3 Lymph # (Auto) (1.18-3.74) K/mm3 George # (Auto) (0.24-0.36) K/mm3 Eos # (Auto) (0.04-0.36) K/mm3 Baso # (Auto) (0.01-0.08) K/mm3 Manual Slide Review Sodium (136-145) mEq/L Potassium (3.5-5.1) mEq/L Chloride (98-107) mEq/L Carbon Dioxide (21-32) mEq/L Anion Gap (5-15) BUN (7-18) mg/dL Creatinine (0.55-1.02) mg/dL Est Cr Clr Drug Dosing mL/min Estimated GFR (MDRD) (>60) mL/min BUN/Creatinine Ratio (14-18) Glucose (74-106) mg/dL POC Glucose 189 H 166 H 147 H (70-105) mg/dL Calcium (8.5-10.1) mg/dL Magnesium (1.8-2.4) mg/dl C-Reactive Protein (<1.0) mg/dL Ethyl Alcohol (0.00) gm% Ketones (0.0-0.3) mM 04/03/17 04/03/17 04/03/17 Range/Units 09:50 09:50 09:54 WBC (3.98-10.04) K/mm3 RBC (3.98-5.22) M/mm3 Hgb (11.2-15.7) gm/L Hct (34.1-44.9) % MCV (79.4-94.8) fl MCH (25.6-32.2) pg MCHC (32.2-35.5) g/dl RDW Std Deviation (36.4-46.3) fL Plt Count (182-369) K/mm3 MPV (9.4-12.3) fl Neut % (Auto) (34.0-71.1) % Lymph % (Auto) (19.3-51.7) % George % (Auto) (4.7-12.5) % Eos % (Auto) (0.7-5.8) Baso % (Auto) (0.1-1.2) % Neut # (Auto) (1.56-6.13) K/mm3 Lymph # (Auto) (1.18-3.74) K/mm3 George # (Auto) (0.24-0.36) K/mm3 Eos # (Auto) (0.04-0.36) K/mm3 Baso # (Auto) (0.01-0.08) K/mm3 Manual Slide Review Sodium 141 (136-145) mEq/L Potassium 4.0 (3.5-5.1) mEq/L Chloride 111 H (98-107) mEq/L Carbon Dioxide 14 L (21-32) mEq/L Anion Gap 20.0 H (5-15) BUN 14 (7-18) mg/dL Creatinine 1.1 H (0.55-1.02) mg/dL Est Cr Clr Drug Dosing 66.92 mL/min Estimated GFR (MDRD) > 60 (>60) mL/min BUN/Creatinine Ratio 12.7 L (14-18) Glucose 222 H (74-106) mg/dL POC Glucose 203 H (70-105) mg/dL Calcium 7.4 L (8.5-10.1) mg/dL Magnesium 1.7 L (1.8-2.4) mg/dl C-Reactive Protein 0.5 (<1.0) mg/dL Ethyl Alcohol 0.00 (0.00) gm% Ketones 5.3 (0.0-0.3) mM 04/03/17 04/03/17 04/03/17 Range/Units 10:46 11:46 12:48 WBC (3.98-10.04) K/mm3 RBC (3.98-5.22) M/mm3 Hgb (11.2-15.7) gm/L Hct (34.1-44.9) % MCV (79.4-94.8) fl MCH (25.6-32.2) pg MCHC (32.2-35.5) g/dl RDW Std Deviation (36.4-46.3) fL Plt Count (182-369) K/mm3 MPV (9.4-12.3) fl Neut % (Auto) (34.0-71.1) % Lymph % (Auto) (19.3-51.7) % George % (Auto) (4.7-12.5) % Eos % (Auto) (0.7-5.8) Baso % (Auto) (0.1-1.2) % Neut # (Auto) (1.56-6.13) K/mm3 Lymph # (Auto) (1.18-3.74) K/mm3 George # (Auto) (0.24-0.36) K/mm3 Eos # (Auto) (0.04-0.36) K/mm3 Baso # (Auto) (0.01-0.08) K/mm3 Manual Slide Review Sodium (136-145) mEq/L Potassium (3.5-5.1) mEq/L Chloride (98-107) mEq/L Carbon Dioxide (21-32) mEq/L Anion Gap (5-15) BUN (7-18) mg/dL Creatinine (0.55-1.02) mg/dL Est Cr Clr Drug Dosing mL/min Estimated GFR (MDRD) (>60) mL/min BUN/Creatinine Ratio (14-18) Glucose (74-106) mg/dL POC Glucose 193 H 185 H 177 H (70-105) mg/dL Calcium (8.5-10.1) mg/dL Magnesium (1.8-2.4) mg/dl C-Reactive Protein (<1.0) mg/dL Ethyl Alcohol (0.00) gm% Ketones (0.0-0.3) mM 04/03/17 04/03/17 04/03/17 Range/Units 12:52 12:52 13:45 WBC 20.75 H (3.98-10.04) K/mm3 RBC 3.30 L (3.98-5.22) M/mm3 Hgb 10.0 L (11.2-15.7) gm/L Hct 29.5 L (34.1-44.9) % MCV 89.4 (79.4-94.8) fl MCH 30.3 (25.6-32.2) pg MCHC 33.9 (32.2-35.5) g/dl RDW Std Deviation 37.9 (36.4-46.3) fL Plt Count 435 H (182-369) K/mm3 MPV 8.4 L (9.4-12.3) fl Neut % (Auto) 77.0 H (34.0-71.1) % Lymph % (Auto) 16.3 L (19.3-51.7) % George % (Auto) 5.7 (4.7-12.5) % Eos % (Auto) 0.1 L (0.7-5.8) Baso % (Auto) 0.1 (0.1-1.2) % Neut # (Auto) 15.96 H (1.56-6.13) K/mm3 Lymph # (Auto) 3.38 (1.18-3.74) K/mm3 George # (Auto) 1.19 H (0.24-0.36) K/mm3 Eos # (Auto) 0.03 L (0.04-0.36) K/mm3 Baso # (Auto) 0.03 (0.01-0.08) K/mm3 Manual Slide Review Abnormal smear Sodium 142 (136-145) mEq/L Potassium 3.5 (3.5-5.1) mEq/L Chloride 113 H (98-107) mEq/L Carbon Dioxide 15 L (21-32) mEq/L Anion Gap 17.5 H (5-15) BUN 12 (7-18) mg/dL Creatinine 1.0 (0.55-1.02) mg/dL Est Cr Clr Drug Dosing 73.61 mL/min Estimated GFR (MDRD) > 60 (>60) mL/min BUN/Creatinine Ratio 12.0 L (14-18) Glucose 172 H (74-106) mg/dL POC Glucose 163 H (70-105) mg/dL Calcium 7.1 L (8.5-10.1) mg/dL Magnesium (1.8-2.4) mg/dl C-Reactive Protein (<1.0) mg/dL Ethyl Alcohol (0.00) gm% Ketones (0.0-0.3) mM 04/03/17 Range/Units 14:49 WBC (3.98-10.04) K/mm3 RBC (3.98-5.22) M/mm3 Hgb (11.2-15.7) gm/L Hct (34.1-44.9) % MCV (79.4-94.8) fl MCH (25.6-32.2) pg MCHC (32.2-35.5) g/dl RDW Std Deviation (36.4-46.3) fL Plt Count (182-369) K/mm3 MPV (9.4-12.3) fl Neut % (Auto) (34.0-71.1) % Lymph % (Auto) (19.3-51.7) % George % (Auto) (4.7-12.5) % Eos % (Auto) (0.7-5.8) Baso % (Auto) (0.1-1.2) % Neut # (Auto) (1.56-6.13) K/mm3 Lymph # (Auto) (1.18-3.74) K/mm3 George # (Auto) (0.24-0.36) K/mm3 Eos # (Auto) (0.04-0.36) K/mm3 Baso # (Auto) (0.01-0.08) K/mm3 Manual Slide Review Sodium (136-145) mEq/L Potassium (3.5-5.1) mEq/L Chloride (98-107) mEq/L Carbon Dioxide (21-32) mEq/L Anion Gap (5-15) BUN (7-18) mg/dL Creatinine (0.55-1.02) mg/dL Est Cr Clr Drug Dosing mL/min Estimated GFR (MDRD) (>60) mL/min BUN/Creatinine Ratio (14-18) Glucose (74-106) mg/dL POC Glucose 168 H (70-105) mg/dL Calcium (8.5-10.1) mg/dL Magnesium (1.8-2.4) mg/dl C-Reactive Protein (<1.0) mg/dL Ethyl Alcohol (0.00) gm% Ketones (0.0-0.3) mM Med Orders - Current: Current Medications Dextrose/Sodium Chloride (Dextrose 5%-Normal Saline) 1,000 mls @ 150 mls/hr IV ASDIRECTED ESA Last Admin: 04/03/17 14:07 Dose: 150 mls/hr Insulin Human Regular 100 unit (/ Sodium Chloride) 100 mls @ 2 mls/hr IV ASDIRECTED ESA; 2 UNIT/HR PRN Reason: Protocol Last Titration: 04/03/17 12:49 Dose: 1.5 unit/hr, 1.5 mls/hr Sodium Chloride (Normal Saline) 1,000 mls @ 999 mls/hr IV ASDIRECTED ESA Stop: 04/04/17 10:31 Last Admin: 04/03/17 11:03 Dose: 999 mls/hr Magnesium Sulfate 2 gm/ Premix 50 mls @ 25 mls/hr IV ONETIME ONE Stop: 04/03/17 15:54 Last Admin: 04/03/17 14:10 Dose: 25 mls/hr Metoclopramide HCl (Reglan) 5 mg IVPUSH Q6H PRN PRN Reason: Nausea/Vomiting Ondansetron HCl (Zofran) 4 mg IVPUSH Q8H PRN PRN Reason: Nausea/Vomiting Discontinued Medications Hydromorphone HCl (Dilaudid) 0.5 mg IVPUSH ONETIME ONE Stop: 04/02/17 22:10 Last Admin: 04/02/17 22:34 Dose: 0.5 mg Hydromorphone HCl (Dilaudid) 0.5 mg IVPUSH ONETIME ONE Stop: 04/03/17 01:12 Last Admin: 04/03/17 01:22 Dose: 0.5 mg Sodium Chloride (Normal Saline) 1,000 mls @ 999 [facility] Last Admin: 04/02/17 22:34 Dose: 999 mls/hr Insulin Human Regular 100 unit (/ Sodium Chloride) 100 mls @ 2 mls/hr [facility] PRN Reason: 2 UNIT/HR Last Infusion: 04/03/17 04:31 Dose: 2 unit/hr, 2 mls/hr Lidocaine HCl (Xylocaine-Mpf 1%) Confirm Administered Dose 2 mls @ as directed .ROUTE .STK-MED ONE Stop: 04/02/17 22:17 Last Admin: 04/03/17 05:54 Dose: Not Given Sodium Chloride (Normal Saline) 1,000 mls @ 999 mls/hr IV ONETIME ONE Stop: 04/03/17 00:45 Last Admin: 04/02/17 23:47 Dose: 999 mls/hr Sodium Chloride (Normal Saline) 1,000 mls @ 999 mls/hr IV ONETIME ONE Stop: 04/03/17 02:00 Last Admin: 04/03/17 01:00 Dose: 999 mls/hr Sodium Chloride (Normal Saline) 1,000 mls @ 999 mls/hr IV ONETIME ONE Stop: 04/03/17 02:12 Last Admin: 04/03/17 04:17 Dose: Not Given Sodium Chloride (Normal Saline) 1,000 mls @ 500 mls/hr IV ONETIME ONE Stop: 04/03/17 04:14 Last Admin: 04/03/17 02:10 Dose: 500 mls/hr Sodium Chloride (Normal Saline) 1,000 mls @ 500 mls/hr IV ONETIME ONE Stop: 04/03/17 04:21 Last Admin: 04/03/17 04:17 Dose: Not Given Sodium Chloride (Normal Saline) 1,000 mls @ 500 mls/hr IV ONETIME ONE Stop: 04/03/17 06:10 Last Admin: 04/03/17 04:13 Dose: 500 mls/hr Insulin Human Regular (Humulin R) 10 unit IVPUSH ONETIME ONE PRN Reason: Protocol Stop: 04/02/17 22:12 Last Admin: 04/02/17 22:31 Dose: 10 unit Lorazepam (Ativan) 0.5 mg IVPUSH ONETIME ONE Stop: 04/02/17 22:36 Last Admin: 04/02/17 22:47 Dose: 0.5 mg Metoclopramide HCl (Reglan) 7.5 mg IVPUSH ONETIME ONE Stop: 04/02/17 22:07 Last Admin: 04/02/17 22:33 Dose: 7.5 mg - Exam Quality Assessment: DVT Prophylaxis General: Alert, Oriented, Cooperative, No Acute Distress HEENT: Pupils Equal, Pupils Reactive, EOMI Neck: Supple, Trachea Midline Lungs: Normal Respiratory Effort Cardiovascular: Regular Rate, Regular Rhythm GI/Abdominal Exam: Normal Bowel Sounds, Soft, Non-Tender, No Distention (Female) Exam: Deferred Back Exam: Normal Inspection Extremities: Normal Inspection Skin: Warm Neurological: No New Focal Deficit Psy/Mental Status: Alert, Normal Affect, Normal Mood - Problem List Review Problem List Initiated/Reviewed/Updated: Yes - My Orders Last 24 Hours: My Active Orders 04/03/17 05:08 Consult to Diamond Wheel Edger [Consult to Diabetic Nurse Specialist] [CONS] Routine 04/03/17 05:15 Dextrose 5%-0.9% NaCl [Dextrose 5%-Normal Saline] 1,000 ml IV ASDIRECTED 04/03/17 05:55 Code Status [Resuscitation Status] Routine 04/03/17 06:00 Insulin Regular, Human [HumuLIN R] 100 unit Sodium Chloride 0.9% [Normal Saline] 99 ml IV ASDIRECTED 04/03/17 09:30 Sodium Chloride 0.9% [Normal Saline] 1,000 ml IV ASDIRECTED 04/03/17 09:57 Ondansetron [Zofran] 4 mg IVPUSH Q8H PRN 04/03/17 09:58 Metoclopramide [Reglan] 5 mg IVPUSH Q6H PRN 04/03/17 12:07 Up ad Anuradha [RC] ASDIRECTED 04/03/17 13:55 Magnesium Sulfate/Water [Magnesium Sulfate 2 GM in Water 50 ML] 2 gm Premix Bag 1 bag IV ONETIME 04/03/17 18:00 BASIC METABOLIC PANEL,BMP [CHEM] Routine 04/03/17 Breakfast NPO [Nothing Per Oral Diet] [DIET] 04/03/17 Dinner Clear Liquid Diet [DIET] 04/04/17 07:00 CXR [Chest 2V] [CR] Routine - Plan Plan:: Impression: DKA, unknown precipitant Type 1 Diabetes Mellitus Plan: ICU Start clear liquids when AG closes. CXR 2 views, 04/04/17. DKA protocol IVF Electrolyte Replacement NPO Clarify insulin pump dose DM education CM/OT/PT DVT/GI prophylaxis
[2017-04-03] MEDS ORDERED: Ibuprofen 400 MG Tab PO ONE (18:35)
[2017-04-03] MEDS: Potassium Chloride 10% 20 MEQ/15 ML Soln 30 ML UD Cup PO ONE ×2 (18:49→18:51)
[2017-04-03] MEDS ORDERED: Potassium Chloride 20 MEQ Tab.ER PO ONE (18:51)
[2017-04-03] MEDS: Dextrose 5%-0.9% NaCl with KCl 1,000 ML IV SCH (23:12)
[2017-04-04] MEDS: Dextrose 5%-0.9% NaCl with KCl 1,000 ML IV SCH ×2 (06:00→22:08)
[2017-04-04] MEDS: Insulin Aspart 100 Units/ML 3 ML Pen SUBCUT SCH ×3 (09:04→18:09)
--- NOTE | 2017-04-04 15:15 | PCM.PN ---
- General Info Date of Service: 04/04/17 Functional Status: Reports: Tolerating Diet - Review of Systems General: Reports: No Symptoms HEENT: Reports: No Symptoms Pulmonary: Reports: No Symptoms Cardiovascular: Reports: No Symptoms Gastrointestinal: Reports: No Symptoms Genitourinary: Reports: No Symptoms Musculoskeletal: Reports: No Symptoms Skin: Reports: No Symptoms Neurological: Reports: No Symptoms Psychiatric: Reports: No Symptoms - Patient Data Vitals - Most Recent: Last Vital Signs Temp 36.1 C 04/04/17 07:56 Pulse 101 H 04/04/17 12:00 Resp 14 04/04/17 12:00 BP 153/90 H 04/04/17 12:00 Pulse Ox 100 04/04/17 12:00 Weight - Most Recent: 66.361 kg I&O - Last 24 Hours: Intake & Output 04/04/17 04/04/17 04/04/17 06:59 14:59 22:59 Intake Total 2752 Output Total 700 Balance 2052 Lab Results Last 24 Hours: Laboratory Results - last 24 hr 04/03/17 04/03/17 04/03/17 Range/Units 15:50 16:58 17:49 Sodium (136-145) mEq/L Potassium (3.5-5.1) mEq/L Chloride (98-107) mEq/L Carbon Dioxide (21-32) mEq/L Anion Gap (5-15) BUN (7-18) mg/dL Creatinine (0.55-1.02) mg/dL Est Cr Clr Drug Dosing mL/min Estimated GFR (MDRD) (>60) mL/min BUN/Creatinine Ratio (14-18) Glucose (74-106) mg/dL POC Glucose 152 H 165 H 164 H (70-105) mg/dL Calcium (8.5-10.1) mg/dL 04/03/17 04/03/17 04/03/17 Range/Units 18:00 18:54 20:15 Sodium 141 138 (136-145) mEq/L Potassium 3.2 L 3.2 L (3.5-5.1) mEq/L Chloride 111 H 111 H (98-107) mEq/L Carbon Dioxide 15 L 15 L (21-32) mEq/L Anion Gap 18.2 H 15.2 H (5-15) BUN 9 8 (7-18) mg/dL Creatinine 0.9 1.0 (0.55-1.02) mg/dL Est Cr Clr Drug Dosing 81.79 73.61 mL/min Estimated GFR (MDRD) > 60 > 60 (>60) mL/min BUN/Creatinine Ratio 10.0 L 8.0 L (14-18) Glucose 164 H 337 H (74-106) mg/dL POC Glucose 174 H (70-105) mg/dL Calcium 7.3 L 7.2 L (8.5-10.1) mg/dL 04/03/17 04/03/17 04/03/17 Range/Units 20:17 21:00 22:22 Sodium (136-145) mEq/L Potassium (3.5-5.1) mEq/L Chloride (98-107) mEq/L Carbon Dioxide (21-32) mEq/L Anion Gap (5-15) BUN (7-18) mg/dL Creatinine (0.55-1.02) mg/dL Est Cr Clr Drug Dosing mL/min Estimated GFR (MDRD) (>60) mL/min BUN/Creatinine Ratio (14-18) Glucose (74-106) mg/dL POC Glucose 295 H 286 H 274 H (70-105) mg/dL Calcium (8.5-10.1) mg/dL 04/03/17 04/03/17 04/04/17 Range/Units 23:10 23:10 00:12 Sodium 139 (136-145) mEq/L Potassium 3.4 L (3.5-5.1) mEq/L Chloride 111 H (98-107) mEq/L Carbon Dioxide 14 L (21-32) mEq/L Anion Gap 17.4 H (5-15) BUN 6 L (7-18) mg/dL Creatinine 1.0 (0.55-1.02) mg/dL Est Cr Clr Drug Dosing 73.61 mL/min Estimated GFR (MDRD) > 60 (>60) mL/min BUN/Creatinine Ratio 6.0 L (14-18) Glucose 297 H (74-106) mg/dL POC Glucose 268 H 341 H (70-105) mg/dL Calcium 7.0 L (8.5-10.1) mg/dL 04/04/17 04/04/17 04/04/17 Range/Units 01:14 02:16 03:18 Sodium (136-145) mEq/L Potassium (3.5-5.1) mEq/L Chloride (98-107) mEq/L Carbon Dioxide (21-32) mEq/L Anion Gap (5-15) BUN (7-18) mg/dL Creatinine (0.55-1.02) mg/dL Est Cr Clr Drug Dosing mL/min Estimated GFR (MDRD) (>60) mL/min BUN/Creatinine Ratio (14-18) Glucose (74-106) mg/dL POC Glucose 215 H 217 H 162 H (70-105) mg/dL Calcium (8.5-10.1) mg/dL 04/04/17 04/04/17 04/04/17 Range/Units 04:28 06:10 06:12 Sodium 142 (136-145) mEq/L Potassium 3.3 L (3.5-5.1) mEq/L Chloride 115 H (98-107) mEq/L Carbon Dioxide 17 L (21-32) mEq/L Anion Gap 13.3 (5-15) BUN 4 L (7-18) mg/dL Creatinine 0.7 (0.55-1.02) mg/dL Est Cr Clr Drug Dosing 105.16 mL/min Estimated GFR (MDRD) > 60 (>60) mL/min BUN/Creatinine Ratio 5.7 L (14-18) Glucose 140 H (74-106) mg/dL POC Glucose 165 H 125 H (70-105) mg/dL Calcium 7.2 L (8.5-10.1) mg/dL 04/04/17 04/04/17 04/04/17 Range/Units 07:04 07:53 09:02 Sodium (136-145) mEq/L Potassium (3.5-5.1) mEq/L Chloride (98-107) mEq/L Carbon Dioxide (21-32) mEq/L Anion Gap (5-15) BUN (7-18) mg/dL Creatinine (0.55-1.02) mg/dL Est Cr Clr Drug Dosing mL/min Estimated GFR (MDRD) (>60) mL/min BUN/Creatinine Ratio (14-18) Glucose (74-106) mg/dL POC Glucose 165 H 102 108 H (70-105) mg/dL Calcium (8.5-10.1) mg/dL 04/04/17 Range/Units 11:07 Sodium (136-145) mEq/L Potassium (3.5-5.1) mEq/L Chloride (98-107) mEq/L Carbon Dioxide (21-32) mEq/L Anion Gap (5-15) BUN (7-18) mg/dL Creatinine (0.55-1.02) mg/dL Est Cr Clr Drug Dosing mL/min Estimated GFR (MDRD) (>60) mL/min BUN/Creatinine Ratio (14-18) Glucose (74-106) mg/dL POC Glucose 352 H (70-105) mg/dL Calcium (8.5-10.1) mg/dL Med Orders - Current: Current Medications Insulin Human Regular 100 unit (/ Sodium Chloride) 100 mls @ 2 mls/hr IV ASDIRECTED ESA; 2 UNIT/HR PRN Reason: Protocol Last Titration: 04/04/17 08:26 Dose: 0.5 unit/hr, 0.5 mls/hr Insulin Aspart (Novolog) 0 unit SUBCUT QIDACANDBED ESA PRN Reason: Protocol Last Admin: 04/04/17 11:45 Dose: Not Given Metoclopramide HCl (Reglan) 5 mg IVPUSH Q6H PRN PRN Reason: Nausea/Vomiting Ondansetron HCl (Zofran) 4 mg IVPUSH Q8H PRN PRN Reason: Nausea/Vomiting Discontinued Medications Hydromorphone HCl (Dilaudid) 0.5 mg IVPUSH ONETIME ONE Stop: 04/02/17 22:10 Last Admin: 04/02/17 22:34 Dose: 0.5 mg Hydromorphone HCl (Dilaudid) 0.5 mg IVPUSH ONETIME ONE Stop: 04/03/17 01:12 Last Admin: 04/03/17 01:22 Dose: 0.5 mg Sodium Chloride (Normal Saline) 1,000 mls @ 999 mls/hr IV ASDIRECTED ESA Last Admin: 04/02/17 22:34 Dose: 999 mls/hr Insulin Human Regular 100 unit (/ Sodium Chloride) 100 mls @ 2 mls/hr IV ASDIRECTED ESA PRN Reason: 2 UNIT/HR Last Infusion: 04/03/17 04:31 Dose: 2 unit/hr, 2 mls/hr Lidocaine HCl (Xylocaine-Mpf 1%) Confirm Administered Dose 2 mls @ as directed .ROUTE .STK-MED ONE Stop: 04/02/17 22:17 Last Admin: 04/03/17 05:54 Dose: Not Given Sodium Chloride (Normal Saline) 1,000 mls @ 999 mls/hr IV ONETIME ONE Stop: 04/03/17 00:45 Last Admin: 04/02/17 23:47 Dose: 999 mls/hr Sodium Chloride (Normal Saline) 1,000 mls @ 999 mls/hr IV ONETIME ONE Stop: 04/03/17 02:00 Last Admin: 04/03/17 01:00 Dose: 999 mls/hr Sodium Chloride (Normal Saline) 1,000 mls @ 999 mls/hr IV ONETIME ONE Stop: 04/03/17 02:12 Last Admin: 04/03/17 04:17 Dose: Not Given Sodium Chloride (Normal Saline) 1,000 mls @ 500 mls/hr IV ONETIME ONE Stop: 04/03/17 04:14 Last Admin: 04/03/17 02:10 Dose: 500 mls/hr Sodium Chloride (Normal Saline) 1,000 mls @ 500 mls/hr IV ONETIME ONE Stop: 04/03/17 04:21 Last Admin: 04/03/17 04:17 Dose: Not Given Sodium Chloride (Normal Saline) 1,000 mls @ 500 mls/hr IV ONETIME ONE Stop: 04/03/17 06:10 Last Admin: 04/03/17 04:13 Dose: 500 mls/hr Dextrose/Sodium Chloride (Dextrose 5%-Normal Saline) 1,000 mls @ 150 mls/hr IV ASDIRECTED [facility] Last Admin: 04/03/17 20:56 Dose: 150 mls/hr Sodium Chloride (Normal Saline) 1,000 mls @ 999 mls/hr IV ASDIRECTED [facility] Stop: 04/04/17 10:31 Last Admin: 04/03/17 11:03 Dose: 999 mls/hr Magnesium Sulfate 2 gm/ Premix 50 mls @ 25 mls/hr IV ONETIME ONE Stop: 04/03/17 15:54 Last Admin: 04/03/17 14:10 Dose: 25 mls/hr Potassium Chloride/Dextrose/Sod Cl (D5 Ns With 20 Meq Kcl) 1,000 mls @ 150 mls/ hr IV ASDIRECTED ESA Last Admin: 04/04/17 06:00 Dose: 150 mls/hr Ibuprofen (Motrin) 400 mg PO ONETIME ONE Stop: 04/03/17 18:36 Last Admin: 04/03/17 18:47 Dose: 400 mg Insulin Human Regular (Humulin R) 10 unit IVPUSH ONETIME ONE PRN Reason: Protocol Stop: 04/02/17 22:12 Last Admin: 04/02/17 22:31 Dose: 10 unit Lorazepam (Ativan) 0.5 mg IVPUSH ONETIME ONE Stop: 04/02/17 22:36 Last Admin: 04/02/17 22:47 Dose: 0.5 mg Metoclopramide HCl (Reglan) 7.5 mg IVPUSH ONETIME ONE Stop: 04/02/17 22:07 Last Admin: 04/02/17 22:33 Dose: 7.5 mg Potassium Chloride (Potassium Chloride) 40 meq PO ONETIME ONE Stop: 04/03/17 18:35 Last Admin: 04/03/17 18:51 Dose: Not Given Potassium Chloride (Klor-Con M20) 40 meq PO ONETIME ONE Stop: 04/03/17 18:52 Last Admin: 04/03/17 18:57 Dose: 40 meq - Exam Quality Assessment: DVT Prophylaxis General: Alert, Oriented, Cooperative HEENT: Pupils Equal, Pupils Reactive, EOMI Neck: Supple, Trachea Midline Lungs: Normal Respiratory Effort Cardiovascular: Regular Rate, Regular Rhythm GI/Abdominal Exam: Normal Bowel Sounds, Soft, Non-Tender, No Distention (Female) Exam: Deferred Back Exam: Normal Inspection Extremities: Normal Inspection Skin: Warm Neurological: No New Focal Deficit Psy/Mental Status: Alert - Problem List Review Problem List Initiated/Reviewed/Updated: Yes - My Orders Last 24 Hours: My Active Orders 04/04/17 07:00 CXR [Chest 2V] [CR] Routine 04/04/17 08:09 Blood Glucose Check, Bedside [RC] QIDACANDBED 04/04/17 08:15 Insulin Aspart [NovoLOG] See Protocol SUBCUT QIDACANDBED 04/04/17 Breakfast [place] [employer] Diet [DIET] 04/05/17 05:00 BMP [BASIC METABOLIC PANEL,BMP] [CHEM] Routine CBC WITH AUTO DIFF [HEME] Routine CRP [C-REACTIVE PROTEIN] [CHEM] Routine KETONES,BLOOD [CHEM] Routine MAGNESIUM [CHEM] Routine - Plan Plan:: Impression: DKA, unknown precipitant Type 1 Diabetes Mellitus; AG closed this AM Plan: Restart insulin pump public health educator DKA protocol IVF, DCd Electrolyte Replacement CM/OT/PT DVT/GI prophylaxis DC 04/05/17
[2017-04-04] MEDS ORDERED: Insulin Aspart 100 Units/ML 3 ML Pen SUBCUT ONE (16:17)
[2017-04-04] MEDS: Sodium Chloride 0.9% 1,000 ML IV SCH ×3 (18:05→20:16)
[2017-04-04] MEDS: LORazepam 2 MG/ML MDV IVPUSH PRN (18:33)
[2017-04-04] MEDS ORDERED: Sodium Chloride 0.9% 1,000 ML IV SCH (21:21)
[2017-04-05] MEDS: LORazepam 2 MG/ML MDV IVPUSH PRN (00:05)
[2017-04-05] MEDS: Dextrose 5%-0.9% NaCl with KCl 1,000 ML IV SCH (04:30)
--- NOTE | 2017-04-05 08:58 | CR ---
Chest: Two views of the chest were obtained. Comparison: Previous chest x-ray of 04/02/17. Increased perihilar markings are seen on both sides of the chest. No consolidative opacities are seen. Bony structures are unremarkable. Impression: 1. Increased central lung markings compatible with moderately severe bronchitis. Diagnostic code #3 Mostly agree with preliminary report issued by [facility], but my feelings are findings most likely due to bronchitis ([facility] preliminary report dictated on 04/04/17, 9:12 AM Central Time)
--- NOTE | 2017-04-05 08:58 | CR ---
Chest: Portable view of the chest was obtained. Comparison: No previous study. Heart size and mediastinum are within normal limits. Lungs are clear. Bony structures are grossly intact. Impression: 1. Nothing acute is identified on portable chest x-ray. Diagnostic code #1
[2017-04-05] MEDS ORDERED: Magnesium Sulfate/Water 2 GM in Premix Bag 1 BAG IV ONE ×2 (09:22→14:00)
[2017-04-05] MEDS ORDERED: D5 1/2 NS w/ 20 mEq/L KCl 1,000 ML IV SCH (09:30)
--- NOTE | 2017-04-05 12:13 | PCM.PN ---
- General Info Date of Service: 04/05/17 Functional Status: Reports: Ambulating, Urinating - Review of Systems General: Reports: Weakness, Malaise HEENT: Reports: No Symptoms Pulmonary: Reports: No Symptoms Cardiovascular: Reports: No Symptoms Gastrointestinal: Reports: Abdominal Pain Genitourinary: Reports: No Symptoms Musculoskeletal: Reports: No Symptoms Skin: Reports: No Symptoms Neurological: Reports: No Symptoms Psychiatric: Reports: No Symptoms - Patient Data Vitals - Most Recent: Last Vital Signs Temp 36.6 C 04/05/17 08:00 Pulse 96 04/05/17 08:00 Resp 18 04/05/17 08:00 BP 137/84 04/05/17 08:00 Pulse Ox 97 04/05/17 08:00 Weight - Most Recent: 68.629 kg I&O - Last 24 Hours: Intake & Output 04/04/17 04/05/17 04/05/17 22:59 06:59 14:59 Intake Total 4040 5351 Output Total 1900 700 Balance 2140 4651 Lab Results Last 24 Hours: Laboratory Results - last 24 hr 04/04/17 04/04/17 04/04/17 Range/Units 16:25 16:25 19:14 WBC (3.98-10.04) K/mm3 RBC (3.98-5.22) M/mm3 Hgb (11.2-15.7) gm/L Hct (34.1-44.9) % MCV (79.4-94.8) fl MCH (25.6-32.2) pg MCHC (32.2-35.5) g/dl RDW Std Deviation (36.4-46.3) fL Plt Count (182-369) K/mm3 MPV (9.4-12.3) fl Neut % (Auto) (34.0-71.1) % Lymph % (Auto) (19.3-51.7) % [place] % (Auto) (4.7-12.5) % Eos % (Auto) (0.7-5.8) Baso % (Auto) (0.1-1.2) % Neut # (Auto) (1.56-6.13) K/mm3 Lymph # (Auto) (1.18-3.74) K/mm3 [place] # (Auto) (0.24-0.36) K/mm3 Eos # (Auto) (0.04-0.36) K/mm3 Baso # (Auto) (0.01-0.08) K/mm3 Puncture Site ABG pH (7.35-7.45) ABG pCO2 (35.0-45.0) mmHg ABG pO2 (80.0-100.0) mmHg ABG HCO3 (22.0-26.0) meq/L ABG O2 Saturation (96.0-97.0) % ABG Base Excess (-2-2.0) Adrian Test A-a Gradient mmHg FiO2 (21.00-100.00) % Sodium 130 L 134 L (136-145) mEq/L Potassium 4.4 4.3 (3.5-5.1) mEq/L Chloride 99 103 (98-107) mEq/L Carbon Dioxide 9 L < 5 L* (21-32) mEq/L Anion Gap 26.4 H 30.3 H (5-15) BUN 10 11 (7-18) mg/dL Creatinine 1.0 1.1 H (0.55-1.02) mg/dL Est Cr Clr Drug Dosing 73.61 66.92 mL/min Estimated GFR (MDRD) > 60 > 60 (>60) mL/min BUN/Creatinine Ratio 10.0 L 10.0 L (14-18) Glucose 642 H* 638 H* 605 H* (74-106) mg/dL POC Glucose (70-105) mg/dL Calcium 8.4 L 8.3 L (8.5-10.1) mg/dL Magnesium (1.8-2.4) mg/dl C-Reactive Protein (<1.0) mg/dL Ketones (0.0-0.3) mM 04/04/17 04/04/17 04/04/17 Range/Units 19:25 20:52 21:56 WBC (3.98-10.04) K/mm3 RBC (3.98-5.22) M/mm3 Hgb (11.2-15.7) gm/L Hct (34.1-44.9) % MCV (79.4-94.8) fl MCH (25.6-32.2) pg MCHC (32.2-35.5) g/dl RDW Std Deviation (36.4-46.3) fL Plt Count (182-369) K/mm3 MPV (9.4-12.3) fl Neut % (Auto) (34.0-71.1) % Lymph % (Auto) (19.3-51.7) % [place] % (Auto) (4.7-12.5) % Eos % (Auto) (0.7-5.8) Baso % (Auto) (0.1-1.2) % Neut # (Auto) (1.56-6.13) K/mm3 Lymph # (Auto) (1.18-3.74) K/mm3 [place] # (Auto) (0.24-0.36) K/mm3 Eos # (Auto) (0.04-0.36) K/mm3 Baso # (Auto) (0.01-0.08) K/mm3 Puncture Site Rt radial ABG pH 7.13 L* (7.35-7.45) ABG pCO2 8.0 L* (35.0-45.0) mmHg ABG pO2 121.0 H (80.0-100.0) mmHg ABG HCO3 2.5 L (22.0-26.0) meq/L ABG O2 Saturation 98.4 H (96.0-97.0) % ABG Base Excess -26.4 L (-2-2.0) Adrian Test Positive A-a Gradient 3 mmHg FiO2 21.00 (21.00-100.00) % Sodium (136-145) mEq/L Potassium (3.5-5.1) mEq/L Chloride (98-107) mEq/L Carbon Dioxide (21-32) mEq/L Anion Gap (5-15) BUN (7-18) mg/dL Creatinine (0.55-1.02) mg/dL Est Cr Clr Drug Dosing mL/min Estimated GFR (MDRD) (>60) mL/min BUN/Creatinine Ratio (14-18) Glucose 420 H (74-106) mg/dL POC Glucose 237 H (70-105) mg/dL Calcium (8.5-10.1) mg/dL Magnesium (1.8-2.4) mg/dl C-Reactive Protein (<1.0) mg/dL Ketones (0.0-0.3) mM 04/04/17 04/04/17 04/05/17 Range/Units 23:05 23:05 00:03 WBC (3.98-10.04) K/mm3 RBC (3.98-5.22) M/mm3 Hgb (11.2-15.7) gm/L Hct (34.1-44.9) % MCV (79.4-94.8) fl MCH (25.6-32.2) pg MCHC (32.2-35.5) g/dl RDW Std Deviation (36.4-46.3) fL Plt Count (182-369) K/mm3 MPV (9.4-12.3) fl Neut % (Auto) (34.0-71.1) % Lymph % (Auto) (19.3-51.7) % [place] % (Auto) (4.7-12.5) % Eos % (Auto) (0.7-5.8) Baso % (Auto) (0.1-1.2) % Neut # (Auto) (1.56-6.13) K/mm3 Lymph # (Auto) (1.18-3.74) K/mm3 [place] # (Auto) (0.24-0.36) K/mm3 Eos # (Auto) (0.04-0.36) K/mm3 Baso # (Auto) (0.01-0.08) K/mm3 Puncture Site ABG pH (7.35-7.45) ABG pCO2 (35.0-45.0) mmHg ABG pO2 (80.0-100.0) mmHg ABG HCO3 (22.0-26.0) meq/L ABG O2 Saturation (96.0-97.0) % ABG Base Excess (-2-2.0) Adrian Test A-a Gradient mmHg FiO2 (21.00-100.00) % Sodium 139 (136-145) mEq/L Potassium 3.8 (3.5-5.1) mEq/L Chloride 111 H (98-107) mEq/L Carbon Dioxide 13 L (21-32) mEq/L Anion Gap 18.8 H (5-15) BUN 9 (7-18) mg/dL Creatinine 0.9 (0.55-1.02) mg/dL Est Cr Clr Drug Dosing 81.79 mL/min Estimated GFR (MDRD) > 60 (>60) mL/min BUN/Creatinine Ratio 10.0 L (14-18) Glucose 217 H (74-106) mg/dL POC Glucose 188 H 200 H (70-105) mg/dL Calcium 7.4 L (8.5-10.1) mg/dL Magnesium (1.8-2.4) mg/dl C-Reactive Protein (<1.0) mg/dL Ketones (0.0-0.3) mM 04/05/17 04/05/17 04/05/17 Range/Units 01:09 02:18 03:15 WBC (3.98-10.04) K/mm3 RBC (3.98-5.22) M/mm3 Hgb (11.2-15.7) gm/L Hct (34.1-44.9) % MCV (79.4-94.8) fl MCH (25.6-32.2) pg MCHC (32.2-35.5) g/dl RDW Std Deviation (36.4-46.3) fL Plt Count (182-369) K/mm3 MPV (9.4-12.3) fl Neut % (Auto) (34.0-71.1) % Lymph % (Auto) (19.3-51.7) % [place] % (Auto) (4.7-12.5) % Eos % (Auto) (0.7-5.8) Baso % (Auto) (0.1-1.2) % Neut # (Auto) (1.56-6.13) K/mm3 Lymph # (Auto) (1.18-3.74) K/mm3 [place] # (Auto) (0.24-0.36) K/mm3 Eos # (Auto) (0.04-0.36) K/mm3 Baso # (Auto) (0.01-0.08) K/mm3 Puncture Site ABG pH (7.35-7.45) ABG pCO2 (35.0-45.0) mmHg ABG pO2 (80.0-100.0) mmHg ABG HCO3 (22.0-26.0) meq/L ABG O2 Saturation (96.0-97.0) % ABG Base Excess (-2-2.0) Adrian Test A-a Gradient mmHg FiO2 (21.00-100.00) % Sodium 140 (136-145) mEq/L Potassium 3.7 (3.5-5.1) mEq/L Chloride 113 H (98-107) mEq/L Carbon Dioxide 17 L (21-32) mEq/L Anion Gap 13.7 (5-15) BUN 7 (7-18) mg/dL Creatinine 0.8 (0.55-1.02) mg/dL Est Cr Clr Drug Dosing 92.02 mL/min Estimated GFR (MDRD) > 60 (>60) mL/min BUN/Creatinine Ratio 8.8 L (14-18) Glucose 165 H (74-106) mg/dL POC Glucose 197 H 174 H (70-105) mg/dL Calcium 7.2 L (8.5-10.1) mg/dL Magnesium (1.8-2.4) mg/dl C-Reactive Protein (<1.0) mg/dL Ketones (0.0-0.3) mM 04/05/17 04/05/17 04/05/17 Range/Units 03:17 04:29 05:37 WBC (3.98-10.04) K/mm3 RBC (3.98-5.22) M/mm3 Hgb (11.2-15.7) gm/L Hct (34.1-44.9) % MCV (79.4-94.8) fl MCH (25.6-32.2) pg MCHC (32.2-35.5) g/dl RDW Std Deviation (36.4-46.3) fL Plt Count (182-369) K/mm3 MPV (9.4-12.3) fl Neut % (Auto) (34.0-71.1) % Lymph % (Auto) (19.3-51.7) % [place] % (Auto) (4.7-12.5) % Eos % (Auto) (0.7-5.8) Baso % (Auto) (0.1-1.2) % Neut # (Auto) (1.56-6.13) K/mm3 Lymph # (Auto) (1.18-3.74) K/mm3 [place] # (Auto) (0.24-0.36) K/mm3 Eos # (Auto) (0.04-0.36) K/mm3 Baso # (Auto) (0.01-0.08) K/mm3 Puncture Site ABG pH (7.35-7.45) ABG pCO2 (35.0-45.0) mmHg ABG pO2 (80.0-100.0) mmHg ABG HCO3 (22.0-26.0) meq/L ABG O2 Saturation (96.0-97.0) % ABG Base Excess (-2-2.0) Adrian Test A-a Gradient mmHg FiO2 (21.00-100.00) % Sodium (136-145) mEq/L Potassium (3.5-5.1) mEq/L Chloride (98-107) mEq/L Carbon Dioxide (21-32) mEq/L Anion Gap (5-15) BUN (7-18) mg/dL Creatinine (0.55-1.02) mg/dL Est Cr Clr Drug Dosing mL/min Estimated GFR (MDRD) (>60) mL/min BUN/Creatinine Ratio (14-18) Glucose (74-106) mg/dL POC Glucose 164 H 140 H 125 H (70-105) mg/dL Calcium (8.5-10.1) mg/dL Magnesium (1.8-2.4) mg/dl C-Reactive Protein (<1.0) mg/dL Ketones (0.0-0.3) mM 04/05/17 04/05/17 04/05/17 Range/Units 06:31 06:31 06:31 WBC 7.03 (3.98-10.04) K/mm3 RBC 3.21 L (3.98-5.22) M/mm3 Hgb 9.8 L (11.2-15.7) gm/L Hct 28.8 L (34.1-44.9) % MCV 89.7 (79.4-94.8) fl MCH 30.5 (25.6-32.2) pg MCHC 34.0 (32.2-35.5) g/dl RDW Std Deviation 39.6 (36.4-46.3) fL Plt Count 338 (182-369) K/mm3 MPV 8.5 L (9.4-12.3) fl Neut % (Auto) 66.0 (34.0-71.1) % Lymph % (Auto) 26.9 (19.3-51.7) % [place] % (Auto) 5.0 (4.7-12.5) % Eos % (Auto) 1.7 (0.7-5.8) Baso % (Auto) 0.3 (0.1-1.2) % Neut # (Auto) 4.64 (1.56-6.13) K/mm3 Lymph # (Auto) 1.89 (1.18-3.74) K/mm3 [place] # (Auto) 0.35 (0.24-0.36) K/mm3 Eos # (Auto) 0.12 (0.04-0.36) K/mm3 Baso # (Auto) 0.02 (0.01-0.08) K/mm3 Puncture Site ABG pH (7.35-7.45) ABG pCO2 (35.0-45.0) mmHg ABG pO2 (80.0-100.0) mmHg ABG HCO3 (22.0-26.0) meq/L ABG O2 Saturation (96.0-97.0) % ABG Base Excess (-2-2.0) Adrian Test A-a Gradient mmHg FiO2 (21.00-100.00) % Sodium 141 (136-145) mEq/L Potassium 3.8 (3.5-5.1) mEq/L Chloride 112 H (98-107) mEq/L Carbon Dioxide 16 L (21-32) mEq/L Anion Gap 16.8 H (5-15) BUN 5 L (7-18) mg/dL Creatinine 0.7 (0.55-1.02) mg/dL Est Cr Clr Drug Dosing 105.16 mL/min Estimated GFR (MDRD) > 60 (>60) mL/min BUN/Creatinine Ratio 7.1 L (14-18) Glucose 190 H (74-106) mg/dL POC Glucose (70-105) mg/dL Calcium 7.4 L (8.5-10.1) mg/dL Magnesium 1.7 L (1.8-2.4) mg/dl C-Reactive Protein 2.1 H* (<1.0) mg/dL Ketones 1.85 (0.0-0.3) mM 04/05/17 04/05/17 04/05/17 Range/Units 09:26 10:37 11:59 WBC (3.98-10.04) K/mm3 RBC (3.98-5.22) M/mm3 Hgb (11.2-15.7) gm/L Hct (34.1-44.9) % MCV (79.4-94.8) fl MCH (25.6-32.2) pg MCHC (32.2-35.5) g/dl RDW Std Deviation (36.4-46.3) fL Plt Count (182-369) K/mm3 MPV (9.4-12.3) fl Neut % (Auto) (34.0-71.1) % Lymph % (Auto) (19.3-51.7) % [place] % (Auto) (4.7-12.5) % Eos % (Auto) (0.7-5.8) Baso % (Auto) (0.1-1.2) % Neut # (Auto) (1.56-6.13) K/mm3 Lymph # (Auto) (1.18-3.74) K/mm3 [place] # (Auto) (0.24-0.36) K/mm3 Eos # (Auto) (0.04-0.36) K/mm3 Baso # (Auto) (0.01-0.08) K/mm3 Puncture Site ABG pH (7.35-7.45) ABG pCO2 (35.0-45.0) mmHg ABG pO2 (80.0-100.0) mmHg ABG HCO3 (22.0-26.0) meq/L ABG O2 Saturation (96.0-97.0) % ABG Base Excess (-2-2.0) Adrian Test A-a Gradient mmHg FiO2 (21.00-100.00) % Sodium (136-145) mEq/L Potassium (3.5-5.1) mEq/L Chloride (98-107) mEq/L Carbon Dioxide (21-32) mEq/L Anion Gap (5-15) BUN (7-18) mg/dL Creatinine (0.55-1.02) mg/dL Est Cr Clr Drug Dosing mL/min Estimated GFR (MDRD) (>60) mL/min BUN/Creatinine Ratio (14-18) Glucose (74-106) mg/dL POC Glucose 184 H 155 H 208 H (70-105) mg/dL Calcium (8.5-10.1) mg/dL Magnesium (1.8-2.4) mg/dl C-Reactive Protein (<1.0) mg/dL Ketones (0.0-0.3) mM Med Orders - Current: Current Medications Insulin Human Regular 100 unit (/ Sodium Chloride) 100 mls @ 2 mls/hr IV ASDIRECTED ESA; 2 UNIT/HR PRN Reason: Protocol Last Titration: 04/05/17 12:01 Dose: 2 unit/hr, 2 mls/hr Potassium Chloride/Dextrose/Sod Cl (D5 1/2 Ns W/ 20 Meq/L Kcl) 1,000 mls @ 150 mls/hr IV ASDIRECTED ESA Last Admin: 04/05/17 11:11 Dose: 150 mls/hr Lorazepam (Ativan) 1 mg IVPUSH Q6H PRN PRN Reason: Anxiety Last Admin: 04/05/17 00:05 Dose: 1 mg Metoclopramide HCl (Reglan) 5 mg IVPUSH Q6H PRN PRN Reason: Nausea/Vomiting Ondansetron HCl (Zofran) 4 mg IVPUSH Q8H PRN PRN Reason: Nausea/Vomiting Last Admin: 04/04/17 18:08 Dose: 4 mg Discontinued Medications Hydromorphone HCl (Dilaudid) 0.5 mg IVPUSH ONETIME ONE Stop: 04/02/17 22:10 Last Admin: 04/02/17 22:34 Dose: 0.5 mg Hydromorphone HCl (Dilaudid) 0.5 mg IVPUSH ONETIME ONE Stop: 04/03/17 01:12 Last Admin: 04/03/17 01:22 Dose: 0.5 mg Sodium Chloride (Normal Saline) 1,000 mls @ 999 mls/hr IV ASDIRECTED ESA Last Admin: 04/02/17 22:34 Dose: 999 mls/hr Insulin Human Regular 100 unit (/ Sodium Chloride) 100 mls @ 2 mls/hr IV ASDIRECTED ESA PRN Reason: 2 UNIT/HR Last Infusion: 04/03/17 04:31 Dose: 2 unit/hr, 2 mls/hr Lidocaine HCl (Xylocaine-Mpf 1%) Confirm Administered Dose 2 mls @ as directed .ROUTE .STK-MED ONE Stop: 04/02/17 22:17 Last Admin: 04/03/17 05:54 Dose: Not Given Sodium Chloride (Normal Saline) 1,000 mls @ 999 mls/hr IV ONETIME ONE Stop: 04/03/17 00:45 Last Admin: 04/02/17 23:47 Dose: 999 mls/hr Sodium Chloride (Normal Saline) 1,000 mls @ 999 mls/hr IV ONETIME ONE Stop: 04/03/17 02:00 Last Admin: 04/03/17 01:00 Dose: 999 mls/hr Sodium Chloride (Normal Saline) 1,000 mls @ 999 mls/hr IV ONETIME ONE Stop: 04/03/17 02:12 Last Admin: 04/03/17 04:17 Dose: Not Given Sodium Chloride (Normal Saline) 1,000 mls @ 500 mls/hr IV ONETIME ONE Stop: 04/03/17 04:14 Last Admin: 04/03/17 02:10 Dose: 500 mls/hr Sodium Chloride (Normal Saline) 1,000 mls @ 500 mls/hr IV ONETIME ONE Stop: 04/03/17 04:21 Last Admin: 04/03/17 04:17 Dose: Not Given Sodium Chloride (Normal Saline) 1,000 mls @ 500 mls/hr IV ONETIME ONE Stop: 04/03/17 06:10 Last Admin: 04/03/17 04:13 Dose: 500 mls/hr Dextrose/Sodium Chloride (Dextrose 5%-Normal Saline) 1,000 mls @ 150 mls/hr IV ASDIRECTED [facility] Last Admin: 04/03/17 20:56 Dose: 150 mls/hr Sodium Chloride (Normal Saline) 1,000 mls @ 999 mls/hr IV ASDIRECTED [facility] Stop: 04/04/17 10:31 Last Admin: 04/03/17 11:03 Dose: 999 mls/hr Magnesium Sulfate 2 gm/ Premix 50 mls @ 25 mls/hr IV ONETIME ONE Stop: 04/03/17 15:54 Last Admin: 04/03/17 14:10 Dose: 25 mls/hr Potassium Chloride/Dextrose/Sod Cl (D5 Ns With 20 Meq Kcl) 1,000 mls @ 150 mls/ hr IV ASDIRECTED [facility] Last Admin: 04/04/17 06:00 Dose: 150 mls/hr Sodium Chloride (Normal Saline) 1,000 mls @ 999 mls/hr IV Q1H [facility] Stop: 04/04/17 20:44 Last Admin: 04/04/17 20:16 Dose: 999 mls/hr Sodium Chloride (Normal Saline) 1,000 mls @ 999 mls/hr IV Q1H [facility] Stop: 04/05/17 00:20 Last Admin: 04/04/17 23:16 Dose: Not Given Potassium Chloride/Dextrose/Sod Cl (D5 Ns With 20 Meq Kcl) 1,000 mls @ 150 mls/ hr IV ASDIRECTED [facility] Last Admin: 04/05/17 04:30 Dose: 150 mls/hr Magnesium Sulfate 2 gm/ Premix 50 mls @ 25 mls/hr IV ONETIME ONE Stop: 04/05/17 11:21 Last Admin: 04/05/17 10:35 Dose: 25 mls/hr Ibuprofen (Motrin) 400 mg PO ONETIME ONE Stop: 04/03/17 18:36 Last Admin: 04/03/17 18:47 Dose: 400 mg Insulin Aspart (Novolog) 0 unit SUBCUT QIDACANDBED [facility] PRN Reason: Protocol Last Admin: 04/04/17 18:09 Dose: Not Given Insulin Aspart (Novolog) 8 unit SUBCUT ONETIME ONE Stop: 04/04/17 16:18 Last Admin: 04/04/17 16:20 Dose: 8 units Insulin Human Regular (Humulin R) 10 unit IVPUSH ONETIME ONE PRN Reason: Protocol Stop: 04/02/17 22:12 Last Admin: 04/02/17 22:31 Dose: 10 unit Lorazepam (Ativan) 0.5 mg IVPUSH ONETIME ONE Stop: 04/02/17 22:36 Last Admin: 04/02/17 22:47 Dose: 0.5 mg Metoclopramide HCl (Reglan) 7.5 mg IVPUSH ONETIME ONE Stop: 04/02/17 22:07 Last Admin: 04/02/17 22:33 Dose: 7.5 mg Potassium Chloride (Potassium Chloride) 40 meq PO ONETIME ONE Stop: 04/03/17 18:35 Last Admin: 04/03/17 18:51 Dose: Not Given Potassium Chloride (Klor-Con M20) 40 meq PO ONETIME ONE Stop: 04/03/17 18:52 Last Admin: 04/03/17 18:57 Dose: 40 meq - Exam Quality Assessment: DVT Prophylaxis General: Alert, Oriented, No Acute Distress HEENT: Pupils Equal, Pupils Reactive, EOMI Neck: Supple, Trachea Midline, No JVD Lungs: Normal Respiratory Effort Cardiovascular: Regular Rate, Tachycardia GI/Abdominal Exam: Normal Bowel Sounds, Soft, Non-Tender, No Distention, Abnormal Bowel Sounds (Female) Exam: Deferred Back Exam: Normal Inspection Extremities: Normal Inspection Skin: Warm Neurological: No New Focal Deficit Psy/Mental Status: Alert, Normal Affect, Normal Mood - Problem List & Annotations (1) Depression SNOMED Code(s): 51024529 Code(s): F32.9 - MAJOR DEPRESSIVE DISORDER, SINGLE EPISODE, UNSPECIFIED Status: Acute Current Visit: Yes (2) Diabetic ketoacidosis associated with type 1 diabetes mellitus SNOMED Code(s): 560422120, 353604515 Code(s): E10.10 - TYPE 1 DIABETES MELLITUS WITH KETOACIDOSIS WITHOUT COMA Status: Acute Current Visit: Yes Qualifiers: Diabetes mellitus complication detail: without coma Qualified Code(s): E10.10 - Type 1 diabetes mellitus with ketoacidosis without coma - Problem List Review Problem List Initiated/Reviewed/Updated: Yes - My Orders Last 24 Hours: My Active Orders 04/04/17 18:20 LORazepam [Ativan] 1 mg IVPUSH Q6H PRN 04/04/17 Dinner NPO [Nothing Per Oral Diet] [DIET] 04/05/17 09:30 D5 1/2 NS w/ 20 mEq/L KCl 1,000 ml IV ASDIRECTED - Plan Plan:: Impression: DKA, unknown precipitant Type 1 Diabetes Mellitus; AG closed this AM Query Depression Plan: Restart insulin pump communications manager DKA protocol IVF, DCd Electrolyte Replacement CM/OT/PT DVT/GI prophylaxis LOS ~72-96 hours with needed treatment.
[2017-04-05] MEDS: LORazepam 1 MG Tab PO SCH (19:38)
[2017-04-05] MEDS: FLUoxetine 20 MG Cap PO SCH (19:39)
--- NOTE | 2017-04-05 23:30 | CONS ---
CONSULTING PHYSICIAN: Jimi Obando MD DATE OF CONSULTATION: 04/05/2017 IDENTIFICATION: The patient is a 21-year-old female, who is admitted to the inpatient MICU at [place], [place] on 04/03/2017. The patient is seen for psychiatric evaluation. CHIEF COMPLAINT: "Ketones." HISTORY OF PRESENT ILLNESS: The patient is a 21-year-old female, who is admitted to the MICU at [facility] secondary to complications from DKA. The patient is a type 1 diabetic diagnosed with diabetes back in 2004. She states that complicating the clinical picture is the fact that she has been feeling more "down" for the past couple of months. 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 She denies that she is suicidal or homicidal. She denies any psychotic, delusional, or paranoid symptoms. She denies any changes in her appetite. She denies again any isolative behavior. Denies any compulsive behaviors and she denies any illicit substance use or excessive alcohol use complicating the clinical picture. She has never been on antidepressants and is a little nervous about trying an antidepressant and anti-anxiety agent, but she is willing to give it a shot at this point time because she is feeling so down. MEDICATIONS: On presentation, Ativan 1 mg q.6 hours p.r.n. ALLERGIES: 1. Penicillin. 2. Gluten intolerance. PAST MEDICAL HISTORY: 1. Type 1 diabetes diagnosed in 2004. 2. DKA. 3. Celiac disease diagnosed in 01/2017. 4. History of asthma. REVIEW OF SYSTEMS: Aside from Endocrine, GI, and Pulmonary all other major organ systems are negative at this point in time for acute difficulties or complications. PAST PSYCHIATRIC AND CD HISTORY: The patient reports maternal grandfather had a history of schizophrenia. PAST PSYCHIATRIC HISTORY: The patient denies any previous psychiatric hospitalizations or chemical dependency treatments. Denies any previous suicide attempts or self-injurious behavior. She is a nontobacco user. Denies any eating disorder history or abuse issues while being raised. Denies any past psychiatric medication history. PRIMARY CARE PROVIDER: Dr. Ruiz out of [place], [place]. SOCIAL HISTORY: The patient is born in [place], [place], raised in [place], [place]. She is the second of 2 siblings and 1 older brother. The patient's parents were throughout her childhood and adolescence. Father worked for an [employer]. Mother worked in a prison. The patient has little bit of education that she is currently in nursing school at [employer] and has a 2 year degree that she received in 2013. 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 She has never been . She has been in current relationship for 3 years. She lives with her boyfriend in [place], [place]. Her boyfriend is a wrapper rewinder working on the [employer]. She has no children and denies any previous pregnancies. Denies any prior service or current legal difficulties. She is raised [employer]. She enjoys walking her dog and riding her bike. MENTAL STATUS EXAM: The patient is a 21-year-old white female in no apparent distress. Speech is of regular rate and rhythm. The patient is cognitively oriented. Psychomotor activities within normal limits. There is no abnormal motor movements or tics observed. Gait and station are not observed. This patient is sitting in a chair for the course of the interview. Mood is depressed and anxious. Affect is consistent with stated mood cooperative, but quite restricted and even guarded for the majority of the interview as well as tearful at portions of the interview. There is no behavioral or stated evidence of acute suicidal or homicidal ideation or acute psychotic, delusional, or paranoid symptoms. Thought processes are significant for some thought blocking as well as reported racing thoughts and ruminations. There are no acute manic symptoms or loose associations evident. Judgment and insight appear unimpaired at this point in time. Motivation for help appears good. VITALS: Height 5 feet 3 inches tall, approximately 136 pounds. Blood pressure 144/97, pulse 99, respirations 14, temperature 97.5 degrees. IMPRESSION: Erie I. 1. Major depressive disorder F32.3. 2. Anxiety disorder, not otherwise specified F41.9. 3. Rule out acute stress disorder secondary to recent break up with boyfriend. Erie II: None. Erie III. 1. Type 1 diabetes diagnosed in 2004. 2. Diabetic ketoacidosis. 3. Celiac disease diagnosed in 01/2017. 4. History of asthma. Erie IV: Severe. Erie V: 55. PLAN: 1. Begin trial of Prozac 20 mg q.a.m. to help with mood and to reduce anxiety. 2. Continue Ativan 1 mg q.i.d., but makes schedule rather than p.r.n. while patient remains on the hospital unit. 3. Other medications as dosed and prescribed by the patient's primary inpatient medical treatment team. 4. Recommended the patient to follow up with outpatient psychiatry when medically stabilized and discharged back to community to assess overall function efficacy of her newly initiated psychiatric medication regimen. 5. The patient is apprised of benefits and side effects of her newly initiated and adjusted psychiatric medication regimen. She acknowledges her understanding of these facts and has no further questions by the end of the interview session. 6. We will continue to follow up with the patient on as needed basis while she remains on the inpatient medical unit. 7. We will follow up with the patient sooner if any complications in the interim. 8. Crisis plan is in place. BRANDON /[id number]
[2017-04-06] MEDS: LORazepam 1 MG Tab PO SCH ×2 (00:49→08:18)
--- NOTE | 2017-04-06 07:12 | PCM.DCSUM1 ---
<Divya Berrios - Last Filed: 04/06/17 07:39> Discharge Summary - Hospital Course Free Text/Narrative:: 21 year old PMH of Diabetes Mellitus type 1, presents with nausea/vomiting with associated abdominal pain. She has been anxious while in the ED often screaming at the staff. Prior to evaluation by the hospitalist service, she was sedated. The history is as obtained by the ED provider. She is receiving a liter of fluid and will be started on insulin. The insulin pump has been disabled, frequently, the patient gave herself boluses without knowledge of how much she was giving herself. Reportedly she has been a diabetic for four years. Laboratory results document DKA. She will admitted to the ICU per DKA protocol. Patient was maintained on DKA protocol with waxing and waining sugars initially , she was on and off of insulin drip, with AG back up. However, by day 2 insulin drip was weaned off. CDE was consulted, worked with her and her pump. Pump initially had failed, with assist of CDE pump was functional again. She was up ambulatory, tolerating meals, labs were stable. She is discharged home today with follow up within one week, preferably early next week along with CDE to assure pump is still functioning appropriately. She is comfortable with this and ready for discharge today. - Discharge Data Discharge Date: 04/06/17 (admit date 04/03/17) Discharge Disposition: Home, Self-Care 01 Condition: Good - Discharge Diagnosis/Problem(s) (1) Diabetic ketoacidosis associated with type 1 diabetes mellitus SNOMED Code(s): 716126290, 324362058 ICD Code: E10.10 - TYPE 1 DIABETES MELLITUS WITH KETOACIDOSIS WITHOUT COMA Status: Chronic Priority: High Current Visit: Yes QualifierTitle: Diabetes mellitus complication detail: without coma Qualified Code(s): E10.10 - Type 1 diabetes mellitus with ketoacidosis without coma (2) Depression SNOMED Code(s): 27191643 ICD Code: F32.9 - MAJOR DEPRESSIVE DISORDER, SINGLE EPISODE, UNSPECIFIED Status: Chronic Priority: High Current Visit: Yes QualifierTitle: Depression Type: major depressive disorder Major depression episode severity: unspecified - Patient Summary/Data Operative Procedure(s) Performed: None Complications: None Consults: Consultations 04/03/17 05:08 Consult to Bag Making Machine Operator [Consult to Diabetic Nurse Specialist] [CONS] Routine 04/05/17 15:53 Consult to Physician [CONS] Routine Labs Pending at D/C: None Recommended Follow-up Testing/Procedures: Follow up with PCP within one week of discharge; early next week Follow up with CDE early next week for pump recheck Follow up with Psychiatry, Dr. Obando as outpatient for depression Planned Operative Procedure(s) after DC: None Hospital Course: As above - Patient Instructions Diet: Diabetic Diet Activity: As Tolerated Notify Provider of: Fever, Increased Pain, Nausea and/or Vomiting - Discharge Plan Prescriptions/Med Rec: FLUoxetine [PROzac] 20 mg PO DAILY #30 cap Home Medications: Home Meds Albuterol [IJD: Ventolin HFA] 2 puff INH Q4H PRN 04/02/17 [History] Insulin Aspart [NovoLOG] 1 dose SUBCUT ASDIRECTED 04/02/17 [History] FLUoxetine [PROzac] 20 mg PO DAILY #30 cap 04/06/17 [Rx] Patient Handouts: Diabetic Ketoacidosis, Major Depressive Disorder Forms: ED Department Discharge Referrals: PCP,Not In Area [Primary Care Provider] - - Discharge Summary/Plan Comment DC Time >30 min.: Yes (40 min) - General Info Date of Service: 04/06/17 Admission Dx/Problem (Free Text: DANDRE Vaughn is seen this morning, sleeping. I awake her, she denies c/o pain. I s ready and anxious for dc home today. Functional Status: Reports: Pain Controlled, Tolerating Diet, Ambulating, Urinating, New Symptoms - Review of Systems General: Reports: No Symptoms HEENT: Reports: No Symptoms Pulmonary: Reports: No Symptoms Cardiovascular: Reports: No Symptoms Gastrointestinal: Reports: No Symptoms Genitourinary: Reports: No Symptoms Musculoskeletal: Reports: No Symptoms Skin: Reports: No Symptoms Neurological: Reports: No Symptoms Psychiatric: Reports: No Symptoms - Patient Data Vitals - Most Recent: Last Vital Signs Temp 97.6 F 04/06/17 03:47 Pulse 89 04/06/17 00:00 Resp 14 04/06/17 03:47 BP 144/97 H 04/06/17 03:47 Pulse Ox 98 04/06/17 03:47 Weight - Most Recent: 71.123 kg I&O - Last 24 hours: Intake & Output 04/05/17 04/06/17 04/06/17 22:59 06:59 14:59 Intake Total 2573 417 Balance 3255 417 Lab Results - Last 24 hrs: Laboratory Results - last 24 hr 04/05/17 04/05/17 04/05/17 Range/Units 06:31 06:31 06:31 WBC 7.03 (3.98-10.04) K/mm3 RBC 3.21 L (3.98-5.22) M/mm3 Hgb 9.8 L (11.2-15.7) gm/L Hct 28.8 L (34.1-44.9) % MCV 89.7 (79.4-94.8) fl MCH 30.5 (25.6-32.2) pg MCHC 34.0 (32.2-35.5) g/dl RDW Std Deviation 39.6 (36.4-46.3) fL Plt Count 338 (182-369) K/mm3 MPV 8.5 L (9.4-12.3) fl Neut % (Auto) 66.0 (34.0-71.1) % Lymph % (Auto) 26.9 (19.3-51.7) % [place] % (Auto) 5.0 (4.7-12.5) % Eos % (Auto) 1.7 (0.7-5.8) Baso % (Auto) 0.3 (0.1-1.2) % Neut # (Auto) 4.64 (1.56-6.13) K/mm3 Lymph # (Auto) 1.89 (1.18-3.74) K/mm3 [place] # (Auto) 0.35 (0.24-0.36) K/mm3 Eos # (Auto) 0.12 (0.04-0.36) K/mm3 Baso # (Auto) 0.02 (0.01-0.08) K/mm3 Sodium 141 (136-145) mEq/L Potassium 3.8 (3.5-5.1) mEq/L Chloride 112 H (98-107) mEq/L Carbon Dioxide 16 L (21-32) mEq/L Anion Gap 16.8 H (5-15) BUN 5 L (7-18) mg/dL Creatinine 0.7 (0.55-1.02) mg/dL Est Cr Clr Drug Dosing 105.16 mL/min Estimated GFR (MDRD) > 60 (>60) mL/min BUN/Creatinine Ratio 7.1 L (14-18) Glucose 190 H (74-106) mg/dL POC Glucose (70-105) mg/dL Calcium 7.4 L (8.5-10.1) mg/dL Magnesium 1.7 L (1.8-2.4) mg/dl C-Reactive Protein 2.1 H* (<1.0) mg/dL Ketones 1.85 (0.0-0.3) mM 04/05/17 04/05/17 04/05/17 Range/Units 09:26 10:37 11:59 WBC (3.98-10.04) K/mm3 RBC (3.98-5.22) M/mm3 Hgb (11.2-15.7) gm/L Hct (34.1-44.9) % MCV (79.4-94.8) fl MCH (25.6-32.2) pg MCHC (32.2-35.5) g/dl RDW Std Deviation (36.4-46.3) fL Plt Count (182-369) K/mm3 MPV (9.4-12.3) fl Neut % (Auto) (34.0-71.1) % Lymph % (Auto) (19.3-51.7) % [place] % (Auto) (4.7-12.5) % Eos % (Auto) (0.7-5.8) Baso % (Auto) (0.1-1.2) % Neut # (Auto) (1.56-6.13) K/mm3 Lymph # (Auto) (1.18-3.74) K/mm3 [place] # (Auto) (0.24-0.36) K/mm3 Eos # (Auto) (0.04-0.36) K/mm3 Baso # (Auto) (0.01-0.08) K/mm3 Sodium (136-145) mEq/L Potassium (3.5-5.1) mEq/L Chloride (98-107) mEq/L Carbon Dioxide (21-32) mEq/L Anion Gap (5-15) BUN (7-18) mg/dL Creatinine (0.55-1.02) mg/dL Est Cr Clr Drug Dosing mL/min Estimated GFR (MDRD) (>60) mL/min BUN/Creatinine Ratio (14-18) Glucose (74-106) mg/dL POC Glucose 184 H 155 H 208 H (70-105) mg/dL Calcium (8.5-10.1) mg/dL Magnesium (1.8-2.4) mg/dl C-Reactive Protein (<1.0) mg/dL Ketones (0.0-0.3) mM 04/05/17 04/05/17 04/05/17 Range/Units 13:22 13:53 15:14 WBC (3.98-10.04) K/mm3 RBC (3.98-5.22) M/mm3 Hgb (11.2-15.7) gm/L Hct (34.1-44.9) % MCV (79.4-94.8) fl MCH (25.6-32.2) pg MCHC (32.2-35.5) g/dl RDW Std Deviation (36.4-46.3) fL Plt Count (182-369) K/mm3 MPV (9.4-12.3) fl Neut % (Auto) (34.0-71.1) % Lymph % (Auto) (19.3-51.7) % [place] % (Auto) (4.7-12.5) % Eos % (Auto) (0.7-5.8) Baso % (Auto) (0.1-1.2) % Neut # (Auto) (1.56-6.13) K/mm3 Lymph # (Auto) (1.18-3.74) K/mm3 [place] # (Auto) (0.24-0.36) K/mm3 Eos # (Auto) (0.04-0.36) K/mm3 Baso # (Auto) (0.01-0.08) K/mm3 Sodium (136-145) mEq/L Potassium (3.5-5.1) mEq/L Chloride (98-107) mEq/L Carbon Dioxide (21-32) mEq/L Anion Gap (5-15) BUN (7-18) mg/dL Creatinine (0.55-1.02) mg/dL Est Cr Clr Drug Dosing mL/min Estimated GFR (MDRD) (>60) mL/min BUN/Creatinine Ratio (14-18) Glucose (74-106) mg/dL POC Glucose 164 H 175 H 198 H (70-105) mg/dL Calcium (8.5-10.1) mg/dL Magnesium (1.8-2.4) mg/dl C-Reactive Protein (<1.0) mg/dL Ketones (0.0-0.3) mM 04/05/17 04/05/17 04/05/17 Range/Units 15:15 16:28 17:35 WBC (3.98-10.04) K/mm3 RBC (3.98-5.22) M/mm3 Hgb (11.2-15.7) gm/L Hct (34.1-44.9) % MCV (79.4-94.8) fl MCH (25.6-32.2) pg MCHC (32.2-35.5) g/dl RDW Std Deviation (36.4-46.3) fL Plt Count (182-369) K/mm3 MPV (9.4-12.3) fl Neut % (Auto) (34.0-71.1) % Lymph % (Auto) (19.3-51.7) % [place] % (Auto) (4.7-12.5) % Eos % (Auto) (0.7-5.8) Baso % (Auto) (0.1-1.2) % Neut # (Auto) (1.56-6.13) K/mm3 Lymph # (Auto) (1.18-3.74) K/mm3 [place] # (Auto) (0.24-0.36) K/mm3 Eos # (Auto) (0.04-0.36) K/mm3 Baso # (Auto) (0.01-0.08) K/mm3 Sodium 138 (136-145) mEq/L Potassium 3.4 L (3.5-5.1) mEq/L Chloride 111 H (98-107) mEq/L Carbon Dioxide 15 L (21-32) mEq/L Anion Gap 15.4 H (5-15) BUN 5 L (7-18) mg/dL Creatinine 0.7 (0.55-1.02) mg/dL Est Cr Clr Drug Dosing 105.16 mL/min Estimated GFR (MDRD) > 60 (>60) mL/min BUN/Creatinine Ratio 7.1 L (14-18) Glucose 238 H (74-106) mg/dL POC Glucose 172 H 150 H (70-105) mg/dL Calcium 7.7 L (8.5-10.1) mg/dL Magnesium (1.8-2.4) mg/dl C-Reactive Protein (<1.0) mg/dL Ketones (0.0-0.3) mM 04/05/17 04/05/17 04/06/17 Range/Units 18:58 23:13 05:12 WBC (3.98-10.04) K/mm3 RBC (3.98-5.22) M/mm3 Hgb (11.2-15.7) gm/L Hct (34.1-44.9) % MCV (79.4-94.8) fl MCH (25.6-32.2) pg MCHC (32.2-35.5) g/dl RDW Std Deviation (36.4-46.3) fL Plt Count (182-369) K/mm3 MPV (9.4-12.3) fl Neut % (Auto) (34.0-71.1) % Lymph % (Auto) (19.3-51.7) % [place] % (Auto) (4.7-12.5) % Eos % (Auto) (0.7-5.8) Baso % (Auto) (0.1-1.2) % Neut # (Auto) (1.56-6.13) K/mm3 Lymph # (Auto) (1.18-3.74) K/mm3 [place] # (Auto) (0.24-0.36) K/mm3 Eos # (Auto) (0.04-0.36) K/mm3 Baso # (Auto) (0.01-0.08) K/mm3 Sodium (136-145) mEq/L Potassium (3.5-5.1) mEq/L Chloride (98-107) mEq/L Carbon Dioxide (21-32) mEq/L Anion Gap (5-15) BUN (7-18) mg/dL Creatinine (0.55-1.02) mg/dL Est Cr Clr Drug Dosing mL/min Estimated GFR (MDRD) (>60) mL/min BUN/Creatinine Ratio (14-18) Glucose (74-106) mg/dL POC Glucose 155 H 127 H 112 H (70-105) mg/dL Calcium (8.5-10.1) mg/dL Magnesium (1.8-2.4) mg/dl C-Reactive Protein (<1.0) mg/dL Ketones (0.0-0.3) mM Med Orders - Current: Current Medications Fluoxetine HCl (Prozac) 20 mg PO DAILY [facility] Last Admin: 04/05/17 19:39 Dose: 20 mg Insulin Human Regular 100 unit (/ Sodium Chloride) 100 mls @ 2 mls/hr IV ASDIRECTED ESA; 2 UNIT/HR PRN Reason: Protocol Last Titration: 04/05/17 15:15 Dose: 2 unit/hr, 2 mls/hr Potassium Chloride/Dextrose/Sod Cl (D5 1/2 Ns W/ 20 Meq/L Kcl) 1,000 mls @ 150 mls/hr IV ASDIRECTED ESA Last Admin: 04/05/17 11:11 Dose: 150 mls/hr Lorazepam (Ativan) 1 mg PO Q6H ESA Last Admin: 04/06/17 00:49 Dose: 1 mg Metoclopramide HCl (Reglan) 5 mg IVPUSH Q6H PRN PRN Reason: Nausea/Vomiting Ondansetron HCl (Zofran) 4 mg IVPUSH Q8H PRN PRN Reason: Nausea/Vomiting Last Admin: 04/04/17 18:08 Dose: 4 mg Discontinued Medications Hydromorphone HCl (Dilaudid) 0.5 mg IVPUSH ONETIME ONE Stop: 04/02/17 22:10 Last Admin: 04/02/17 22:34 Dose: 0.5 mg Hydromorphone HCl (Dilaudid) 0.5 mg IVPUSH ONETIME ONE Stop: 04/03/17 01:12 Last Admin: 04/03/17 01:22 Dose: 0.5 mg Sodium Chloride (Normal Saline) 1,000 mls @ 999 mls/hr IV ASDIRECTED [facility] Last Admin: 04/02/17 22:34 Dose: 999 mls/hr Insulin Human Regular 100 unit (/ Sodium Chloride) 100 mls @ 2 mls/hr IV ASDIRECTED [facility] PRN Reason: 2 UNIT/HR Last Infusion: 04/03/17 04:31 Dose: 2 unit/hr, 2 mls/hr Lidocaine HCl (Xylocaine-Mpf 1%) Confirm Administered Dose 2 mls @ as directed .ROUTE .STK-MED ONE Stop: 04/02/17 22:17 Last Admin: 04/03/17 05:54 Dose: Not Given Sodium Chloride (Normal Saline) 1,000 mls @ 999 mls/hr IV ONETIME ONE Stop: 04/03/17 00:45 Last Admin: 04/02/17 23:47 Dose: 999 mls/hr Sodium Chloride (Normal Saline) 1,000 mls @ 999 mls/hr IV ONETIME ONE Stop: 04/03/17 02:00 Last Admin: 04/03/17 01:00 Dose: 999 mls/hr Sodium Chloride (Normal Saline) 1,000 mls @ 999 mls/hr IV ONETIME ONE Stop: 04/03/17 02:12 Last Admin: 04/03/17 04:17 Dose: Not Given Sodium Chloride (Normal Saline) 1,000 mls @ 500 mls/hr IV ONETIME ONE Stop: 04/03/17 04:14 Last Admin: 04/03/17 02:10 Dose: 500 mls/hr Sodium Chloride (Normal Saline) 1,000 mls @ 500 mls/hr IV ONETIME ONE Stop: 04/03/17 04:21 Last Admin: 04/03/17 04:17 Dose: Not Given Sodium Chloride (Normal Saline) 1,000 mls @ 500 mls/hr IV ONETIME ONE Stop: 04/03/17 06:10 Last Admin: 04/03/17 04:13 Dose: 500 mls/hr Dextrose/Sodium Chloride (Dextrose 5%-Normal Saline) 1,000 mls @ 150 mls/hr IV ASDIRECTED [facility] Last Admin: 04/03/17 20:56 Dose: 150 mls/hr Sodium Chloride (Normal Saline) 1,000 mls @ 999 mls/hr IV ASDIRECTED [facility] Stop: 04/04/17 10:31 Last Admin: 04/03/17 11:03 Dose: 999 mls/hr Magnesium Sulfate 2 gm/ Premix 50 mls @ 25 mls/hr IV ONETIME ONE Stop: 04/03/17 15:54 Last Admin: 04/03/17 14:10 Dose: 25 mls/hr Potassium Chloride/Dextrose/Sod Cl (D5 Ns With 20 Meq Kcl) 1,000 mls @ 150 mls/ hr IV ASDIRECTED [facility] Last Admin: 04/04/17 06:00 Dose: 150 mls/hr Sodium Chloride (Normal Saline) 1,000 mls @ 999 mls/hr IV Q1H [facility] Stop: 04/04/17 20:44 Last Admin: 04/04/17 20:16 Dose: 999 mls/hr Sodium Chloride (Normal Saline) 1,000 mls @ 999 mls/hr IV Q1H [facility] Stop: 04/05/17 00:20 Last Admin: 04/04/17 23:16 Dose: Not Given Potassium Chloride/Dextrose/Sod Cl (D5 Ns With 20 Meq Kcl) 1,000 mls @ [facility] Admin: 04/05/17 04:30 Dose: 150 mls/hr Magnesium Sulfate 2 gm/ Premix 50 mls @ 25 mls/hr IV ONETIME ONE Stop: 04/05/17 11:21 Last Admin: 04/05/17 10:35 Dose: 25 mls/hr Magnesium Sulfate 2 gm/ Premix 50 mls @ 25 mls/hr IV ONETIME ONE Stop: 04/05/17 15:59 Last Admin: 04/05/17 15:10 Dose: 25 mls/hr Ibuprofen (Motrin) 400 mg PO ONETIME ONE Stop: 04/03/17 18:36 Last Admin: 04/03/17 18:47 Dose: 400 mg Insulin Aspart (Novolog) 0 unit SUBCUT QIDACANDBED [facility] PRN Reason: Protocol Last Admin: 04/04/17 18:09 Dose: Not Given Insulin Aspart (Novolog) 8 unit SUBCUT ONETIME ONE Stop: 04/04/17 16:18 Last Admin: 04/04/17 16:20 Dose: 8 units Insulin Human Regular (Humulin R) 10 unit IVPUSH ONETIME ONE PRN Reason: Protocol Stop: 04/02/17 22:12 Last Admin: 04/02/17 22:31 Dose: 10 unit Lorazepam (Ativan) 0.5 mg IVPUSH ONETIME ONE Stop: 04/02/17 22:36 Last Admin: 04/02/17 22:47 Dose: 0.5 mg Lorazepam (Ativan) 1 mg IVPUSH Q6H PRN PRN Reason: Anxiety Last Admin: 04/05/17 00:05 Dose: 1 mg Metoclopramide HCl (Reglan) 7.5 mg IVPUSH ONETIME ONE Stop: 04/02/17 22:07 Last Admin: 04/02/17 22:33 Dose: 7.5 mg Potassium Chloride (Potassium Chloride) 40 meq PO ONETIME ONE Stop: 04/03/17 18:35 Last Admin: 04/03/17 18:51 Dose: Not Given Potassium Chloride (Klor-Con M20) 40 meq PO ONETIME ONE Stop: 04/03/17 18:52 Last Admin: 04/03/17 18:57 Dose: 40 meq Sertraline HCl (Zoloft) 25 mg PO DAILY ESA - Exam Quality Assessment: Reports: DVT Prophylaxis General: Reports: Alert, Oriented, No Acute Distress HEENT: Reports: Pupils Equal, Mucous Membr. Moist/[place]: Reports: Supple Lungs: Reports: Normal Respiratory Effort (Female) Exam: Deferred Rectal (Female) Exam: Deferred Extremities: Normal Inspection Neurological: Reports: No New Focal Deficit Psy/Mental Status: Reports: Alert, Normal Affect, Normal Mood *Q Meaningful Use (DIS) - VTE *Q VTE Criteria *Q: - Stroke *Q Stroke Criteria *Q: - AMI *Q AMI Criteria *Q: <ReinierCatrina M - Last Filed: 04/06/17 08:38> Discharge Summary - Hospital Course Free Text/Narrative:: Patient was treated for DKA, hospitalization was longer than expected for troubleshooting the insulin pump. The patient offered minimal information regarding type of insulin and appeared to be uninformed with passive aggressive behaviour. She however, did eventual cooperate, and also agreed to a [facility] consult. Meds are unchanged for insulin pump; she has been started on Prozac 20 mg daily for depression. She will need a follow up with her PCP in 1-2 weeks as a outpatient appt with Dr Obando. - Discharge Diagnosis/Problem(s) (1) Depression SNOMED Code(s): 71955707 ICD Code: F32.9 - MAJOR DEPRESSIVE DISORDER, SINGLE EPISODE, UNSPECIFIED Status: Chronic Priority: High Current Visit: Yes Qualifiers: Depression Type: major depressive disorder Major depression episode severity: unspecified (2) Diabetic ketoacidosis associated with type 1 diabetes mellitus SNOMED Code(s): 165575753, 086098128 ICD Code: E10.10 - TYPE 1 DIABETES MELLITUS WITH KETOACIDOSIS WITHOUT COMA Status: Chronic Priority: High Current Visit: Yes Qualifiers: Diabetes mellitus complication detail: without coma Qualified Code(s): E10.10 - Type 1 diabetes mellitus with ketoacidosis without coma - Patient Summary/Data Consults: Consultations 04/03/17 05:08 Consult to Bag Making Machine Operator [Consult to Diabetic Nurse Specialist] [CONS] Routine 04/05/17 15:53 Consult to Physician [CONS] Routine - Patient Data Vitals - Most Recent: Last Vital Signs Temp 36.4 C 04/06/17 08:00 Pulse 98 04/06/17 08:00 Resp 16 04/06/17 08:00 BP 163/88 H 04/06/17 08:00 Pulse Ox 98 04/06/17 08:00 I&O - Last 24 hours: Intake & Output 04/05/17 04/06/17 04/06/17 22:59 06:59 14:59 Intake Total 2573 417 Balance 2573 417 Lab Results - Last 24 hrs: Laboratory Results - last 24 hr 04/05/17 04/05/17 04/05/17 Range/Units 09:26 10:37 11:59 Sodium (136-145) mEq/L Potassium (3.5-5.1) mEq/L Chloride (98-107) mEq/L Carbon Dioxide (21-32) mEq/L Anion Gap (5-15) BUN (7-18) mg/dL Creatinine (0.55-1.02) mg/dL Est Cr Clr Drug Dosing mL/min Estimated GFR (MDRD) (>60) mL/min BUN/Creatinine Ratio (14-18) Glucose (74-106) mg/dL POC Glucose 184 H 155 H 208 H (70-105) mg/dL Calcium (8.5-10.1) mg/dL 04/05/17 04/05/17 04/05/17 Range/Units 13:22 13:53 15:14 Sodium (136-145) mEq/L Potassium (3.5-5.1) mEq/L Chloride (98-107) mEq/L Carbon Dioxide (21-32) mEq/L Anion Gap (5-15) BUN (7-18) mg/dL Creatinine (0.55-1.02) mg/dL Est Cr Clr Drug Dosing mL/min Estimated GFR (MDRD) (>60) mL/min BUN/Creatinine Ratio (14-18) Glucose (74-106) mg/dL POC Glucose 164 H 175 H 198 H (70-105) mg/dL Calcium (8.5-10.1) mg/dL 04/05/17 04/05/17 04/05/17 Range/Units 15:15 16:28 17:35 Sodium 138 (136-145) mEq/L Potassium 3.4 L (3.5-5.1) mEq/L Chloride 111 H (98-107) mEq/L Carbon Dioxide 15 L (21-32) mEq/L Anion Gap 15.4 H (5-15) BUN 5 L (7-18) mg/dL Creatinine 0.7 (0.55-1.02) mg/dL Est Cr Clr Drug Dosing 105.16 mL/min Estimated GFR (MDRD) > 60 (>60) mL/min BUN/Creatinine Ratio 7.1 L (14-18) Glucose 238 H (74-106) mg/dL POC Glucose 172 H 150 H (70-105) mg/dL Calcium 7.7 L (8.5-10.1) mg/dL 04/05/17 04/05/17 04/06/17 Range/Units 18:58 23:13 05:12 Sodium (136-145) mEq/L Potassium (3.5-5.1) mEq/L Chloride (98-107) mEq/L Carbon Dioxide (21-32) mEq/L Anion Gap (5-15) BUN (7-18) mg/dL Creatinine (0.55-1.02) mg/dL Est Cr Clr Drug Dosing mL/min Estimated GFR (MDRD) (>60) mL/min BUN/Creatinine Ratio (14-18) Glucose (74-106) mg/dL POC Glucose 155 H 127 H 112 H (70-105) mg/dL Calcium (8.5-10.1) mg/dL 04/06/17 Range/Units 08:07 Sodium (136-145) mEq/L Potassium (3.5-5.1) mEq/L Chloride (98-107) mEq/L Carbon Dioxide (21-32) mEq/L Anion Gap (5-15) BUN (7-18) mg/dL Creatinine (0.55-1.02) mg/dL Est Cr Clr Drug Dosing mL/min Estimated GFR (MDRD) (>60) mL/min BUN/Creatinine Ratio (14-18) Glucose (74-106) mg/dL POC Glucose 131 H (70-105) mg/dL Calcium (8.5-10.1) mg/dL Med Orders - Current: Current Medications Fluoxetine HCl (Prozac) 20 mg PO DAILY [facility] Last Admin: 04/06/17 08:18 Dose: 20 mg Insulin Human Regular 100 unit (/ Sodium Chloride) 100 mls @ 2 mls/hr IV ASDIRECTED ESA; 2 UNIT/HR PRN Reason: Protocol Last Titration: 04/05/17 15:15 Dose: 2 unit/hr, 2 mls/hr Potassium Chloride/Dextrose/Sod Cl (D5 1/2 Ns W/ 20 Meq/L Kcl) 1,000 mls @ 150 mls/hr IV ASDIRECTED ESA Last Admin: 04/05/17 11:11 Dose: 150 mls/hr Lorazepam (Ativan) 1 mg PO Q6H ESA Last Admin: 04/06/17 08:18 Dose: 1 mg Metoclopramide HCl (Reglan) 5 mg IVPUSH Q6H PRN PRN Reason: Nausea/Vomiting Ondansetron HCl (Zofran) 4 mg IVPUSH Q8H PRN PRN Reason: Nausea/Vomiting Last Admin: 04/04/17 18:08 Dose: 4 mg Discontinued Medications Hydromorphone HCl (Dilaudid) 0.5 mg IVPUSH ONETIME ONE Stop: 04/02/17 22:10 Last Admin: 04/02/17 22:34 Dose: 0.5 mg Hydromorphone HCl (Dilaudid) 0.5 mg IVPUSH ONETIME ONE Stop: 04/03/17 01:12 Last Admin: 04/03/17 01:22 Dose: 0.5 mg Sodium Chloride (Normal Saline) 1,000 mls @ 999 mls/hr IV ASDIRECTED [facility] Last Admin: 04/02/17 22:34 Dose: 999 mls/hr Insulin Human Regular 100 unit (/ Sodium Chloride) 100 mls @ 2 mls/hr IV ASDIRECTED [facility] PRN Reason: 2 UNIT/HR Last Infusion: 04/03/17 04:31 Dose: 2 unit/hr, 2 mls/hr Lidocaine HCl (Xylocaine-Mpf 1%) Confirm Administered Dose 2 mls @ as directed .ROUTE .STK-MED ONE Stop: 04/02/17 22:17 Last Admin: 04/03/17 05:54 Dose: Not Given Sodium Chloride (Normal Saline) 1,000 mls @ 999 mls/hr IV ONETIME ONE Stop: 04/03/17 00:45 Last Admin: 04/02/17 23:47 Dose: 999 mls/hr Sodium Chloride (Normal Saline) 1,000 mls @ 999 mls/hr IV ONETIME ONE Stop: 04/03/17 02:00 Last Admin: 04/03/17 01:00 Dose: 999 mls/hr Sodium Chloride (Normal Saline) 1,000 mls @ 999 mls/hr IV ONETIME ONE Stop: 04/03/17 02:12 Last Admin: 04/03/17 04:17 Dose: Not Given Sodium Chloride (Normal Saline) 1,000 mls @ 500 mls/hr IV ONETIME ONE Stop: 04/03/17 04:14 Last Admin: 04/03/17 02:10 Dose: 500 mls/hr Sodium Chloride (Normal Saline) 1,000 mls @ 500 mls/hr IV ONETIME ONE Stop: 04/03/17 04:21 Last Admin: 04/03/17 04:17 Dose: Not Given Sodium Chloride (Normal Saline) 1,000 mls @ 500 mls/hr IV ONETIME ONE Stop: 04/03/17 06:10 Last Admin: 04/03/17 04:13 Dose: 500 mls/hr Dextrose/Sodium Chloride (Dextrose 5%-Normal Saline) 1,000 mls @ 150 mls/hr IV ASDIRECTED [facility] Last Admin: 04/03/17 20:56 Dose: 150 mls/hr Sodium Chloride (Normal Saline) 1,000 mls @ 999 mls/hr IV ASDIRECTED [facility] Stop: 04/04/17 10:31 Last Admin: 04/03/17 11:03 Dose: 999 mls/hr Magnesium Sulfate 2 gm/ Premix 50 mls @ 25 mls/hr IV ONETIME ONE Stop: 04/03/17 15:54 Last Admin: 04/03/17 14:10 Dose: 25 mls/hr Potassium Chloride/Dextrose/Sod Cl (D5 Ns With 20 Meq Kcl) 1,000 mls @ 150 mls/ hr IV ASDIRECTED [facility] Last Admin: 04/04/17 06:00 Dose: 150 mls/hr Sodium Chloride (Normal Saline) 1,000 mls @ 999 mls/hr IV Q1H [facility] Stop: 04/04/17 20:44 Last Admin: 04/04/17 20:16 Dose: 999 mls/hr Sodium Chloride (Normal Saline) 1,000 mls @ 999 mls/hr IV Q1H [facility] Stop: 04/05/17 00:20 Last Admin: 04/04/17 23:16 Dose: Not Given Potassium Chloride/Dextrose/Sod Cl (D5 Ns With 20 Meq Kcl) 1,000 mls @ 150 [facility] Last Admin: 04/05/17 04:30 Dose: 150 mls/hr Magnesium Sulfate 2 gm/ Premix 50 mls @ 25 mls/hr IV ONETIME ONE Stop: 04/05/17 11:21 Last Admin: 04/05/17 10:35 Dose: 25 mls/hr Magnesium Sulfate 2 gm/ Premix 50 mls @ 25 mls/hr IV ONETIME ONE Stop: 04/05/17 15:59 Last Admin: 04/05/17 15:10 Dose: 25 mls/hr Ibuprofen (Motrin) 400 mg PO ONETIME ONE Stop: 04/03/17 18:36 Last Admin: 04/03/17 18:47 Dose: 400 mg Insulin Aspart (Novolog) 0 unit SUBCUT QIDACANDBED [facility] PRN Reason: Protocol Last Admin: 04/04/17 18:09 Dose: Not Given Insulin Aspart (Novolog) 8 unit SUBCUT ONETIME ONE Stop: 04/04/17 16:18 Last Admin: 04/04/17 16:20 Dose: 8 units Insulin Human Regular (Humulin R) 10 unit IVPUSH ONETIME ONE PRN Reason: Protocol Stop: 04/02/17 22:12 Last Admin: 04/02/17 22:31 Dose: 10 unit Lorazepam (Ativan) 0.5 mg IVPUSH ONETIME ONE Stop: 04/02/17 22:36 Last Admin: 04/02/17 22:47 Dose: 0.5 mg Lorazepam (Ativan) 1 mg IVPUSH Q6H PRN PRN Reason: Anxiety Last Admin: 04/05/17 00:05 Dose: 1 mg Metoclopramide HCl (Reglan) 7.5 mg IVPUSH ONETIME ONE Stop: 04/02/17 22:07 Last Admin: 04/02/17 22:33 Dose: 7.5 mg Potassium Chloride (Potassium Chloride) 40 meq PO ONETIME ONE Stop: 04/03/17 18:35 Last Admin: 04/03/17 18:51 Dose: Not Given Potassium Chloride (Klor-Con M20) 40 meq PO ONETIME ONE Stop: 04/03/17 18:52 Last Admin: 04/03/17 18:57 Dose: 40 meq Sertraline HCl (Zoloft) 25 mg PO DAILY ESA *Q Meaningful Use (DIS) - VTE *Q VTE Criteria *Q: - Stroke *Q Stroke Criteria *Q: - AMI *Q AMI Criteria *Q:
[2017-04-06] MEDS: FLUoxetine 20 MG Cap PO SCH (08:18)
[2017-04-06 08:25] VITALS: BP 163/88
[2017-04-06] MEDS ORDERED: Sertraline 25 MG Tab PO SCH (15:40)
== END 2017-04-06 09:16 | disposition home or self-care (01) | DRG 420 ==
LOC: JD.ED 21:45 → JD.ICU 04-03 04:04
PROVIDERS: ADMIT Internal Medicine Cardiovascular Disease; ATTEND Internal Medicine Cardiovascular Disease
DX: E10.10 Type 1 diabetes mellitus with ketoacidosis without coma (principal); Z79.4 Long term (current) use of insulin; Z96.41 Presence of insulin pump (external) (internal); Z88.0 Allergy status to penicillin; K90.0 Celiac disease; K90.41 Non-celiac gluten sensitivity; F32.3 Major depressive disorder, single episode, severe with psychotic features; F41.9 Anxiety disorder, unspecified; J45.909 Unspecified asthma, uncomplicated
CPT/HCPCS: 36415; 36600; 71010; 71010-26; 71020; 71020-26; 80048; 80053; 80306; 81001; 82009; 82803; 82947; 82962; 83735; 83930; 84703; 85025; 86140; 93005; 96365; 96375; 96376; 99285; 99285-25; A9270-GY; G0480; J1170; J1815-GY; J1817; J2060; J2405; J2765; J3475; J3480; J7030; J7040; J7042